=== PATIENT | male | born 1950 | race Caucasian/White ===

== ENCOUNTER 2018-01-04 23:33 | Emergency (ER) | payer MEDICARE, SELFPAY ==
[2018-01-04 23:34] VITALS: BP 171/139; PULSE 86; RESP 18; TEMP 37.2; O2SAT 93; BMI 26.0
--- NOTE | 2018-01-04 23:44 | RAD_ITS ---
STUDY: X-RAY - ACUTE ABDOMINAL SERIES REASON FOR EXAM: Male, 67 years old. GI BLEEDING TECHNIQUE: Single view of the chest. Supine, view(s) of the abdomen were obtained. COMPARISON: None. FINDINGS: The lungs are clear and expanded. Normal size heart. Normal mediastinum and supa. Normal visualized pulmonary arteries. Normal visualized aortic arch and descending thoracic aorta. There is a non-specific bowel gas pattern. The soft tissue structures of the abdomen and pelvis are unremarkable. Normal visualized osseous structures. Barium residue is seen in the sigmoid colon. RAD/Acute Abdomen Inc Chest IMPRESSION: No acute abnormality of the chest, abdomen, and pelvis. Electronically Signed: Dominga Rodriguez MD at 1:07 EDT Tel , Service support ,
[2018-01-05 00:14] LABS: Absolute Lymphocyte Count 1.21 X10^3/ul (0.83-4.51); Absolute Neutrophil Count 5.2 X10^3/uL (2.0-7.7); Basophil# 0.05 X10^3/uL; Basophil% 0.6 % (0-1); Eosinophil# 1.07 X10^3/uL; Eosinophils% 12.5 % (0-5); Hematocrit 37.9 % (40-54); Hemoglobin 12.1 g/dl (13.0-16.5); Lymphocyte # 1.21 X10^3/ul (4.0); Lymphocyte % 14.1 % (19-41); Mean Corp Hgb Conc 31.9 g/gl (32-36); Mean Corpuscular Hgb 28.3 pg (27.0-32.0); Mean Corpuscular Volume 88.6 fL (80-94); Mean Platelet Vol. 10.2 fl (6.2-12.0); Monocyte# 1.01 X10^3/uL; Monocyte% 11.8 % (0-10); Neutrophil # 5.22 X10^3/uL (2.7-7.7); Neutrophil % 60.8 % (47-70); Platelet Count 278 K/mm3 (150-450); RBC Distribution Width CV 15.9 % (11.6-14.6); RBC Distribution Width SD 51.3 fl (35.1-43.9); Red Blood Count 4.28 M/mm3 (4.6-6.2); White Blood Count 8.6 K/mm3 (4.4-11.0)
[2018-01-05 00:17] LABS: POSITIVE COUNT NO; POSITIVE DIFFERENTIAL NO; POSITIVE MORPHOLOGY NO
[2018-01-05 00:19] LABS: Anion Gap 6 (5-15); BUN 34 mg/dL (7-18); BUN/Creat Ratio 21.7 RATIO (10-20); Calcium,Total 8.2 mg/dL (8.5-10.1); Chloride 108 mmol/L (98-107); Creatinine, Serum 1.57 mg/dL (0.70-1.30); EST Glomerular Filtration Rate 47 mL/min (>60); Est Glom Filt Rate - Afr Amer 57 mL/min (>60); Estimated Creatinine Clearance 43.27 ml/min; Glucose 168 mg/dL (74-106); Potassium 3.9 mmol/L (3.5-5.1); Sodium Level 141 mmol/L (136-145)
[2018-01-05 00:21] LABS: International Normalized Ratio 1.1; Prothrombin Time (Protime)PT. 13.7 SECONDS (11.7-14.9)
[2018-01-05 00:22] LABS: Partial Thromboplast Time 28.4 Seconds (24.1-36.2)
[2018-01-05 01:45] VITALS: BP 170/103; O2SAT 94
--- NOTE | 2018-01-05 01:54 | EKG12_ITS ---
Test Reason : GI BLEED/TRANSFER Blood Pressure : / mmHG Vent. Rate : 066 BPM Atrial Rate : 066 BPM P-R Int : 166 ms QRS Dur : 102 ms QT Int : 398 ms P-R-T Axes : 051 065 082 degrees QTc Int : 417 ms Normal sinus rhythm Normal ECG Confirmed by BRYON ZARATE ([id number]), associate entertainment editor DEREK TABOR ([id number]) on 01/09/2018 1:50:30 PM Referred By: PAUL Confirmed By:BRYON ZARATE
--- NOTE | 2018-01-05 01:57 | ED.DCSUM_ITS ---
- ER Visit Summary Date of Service: 01/05/18 Chief Complaint: GI bleed History of Present Illness: The patient is a 67 M presenting with blood in colostomy bag. Patient states he started having bright red blood in his colostomy bag this evening. He states he emptied an entire bag of blood with clots before arrival. He states this happened in the past, the last time this occurred was in April 2017. He was sent to [facility] at that time. He states all of his surgeries and GI care has been at [facility] and is requesting transfer. He has had nausea and vomiting but denies blood in his emesis. He denies any increased output from his colostomy. Physical Examination: Vitals are stable. Patient is afebrile. Alert no acute distress. HEENT exam is unremarkable. Neck is supple. Lungs are clear and equal bilaterally. Heart is regular rate and rhythm. Abdomen is soft mild tenderness around colostomy with blood in colostomy bag. No guarding or rebound Extremities are unremarkable. Skin is warm and dry. No focal neurologic deficit. Remainder of exam is unremarkable. Emergency Department Course and Treatment: CBC normal except hemoglobin 12.1. Chemistries show glucose 168, BUN 34, creatinine 1.57. INR is 1.1. Patient is given IV fluids, Zofran. Abdominal series shows no acute process. He remains hemodynamically stable in the ED. Discussed with [facility] transfer line and patient will be transferred to [facility]. Disposition: Transfer [facility] Impression: GI bleed This note was generated with textmetix dictation software. It may contain incorrect words, spelling, and punctuation that were not noted in review of the chart prior to signing ED Disposition - Plan for ED Patient: Chief Complaint: GI Bleed Referrals: Carlos Zurita Chi, MD [Primary Care Provider] -
[2018-01-05] MEDS: Ondansetron 4 MG/2 ML Vial IV (02:04)
[2018-01-05 03:00] VITALS: BP 164/90; PULSE 72; RESP 18
== END 2018-01-05 03:01 | disposition short-term general hospital (02) ==
PROVIDERS: Emergency Provider Emergency Medicine; Family Provider Family Medicine Geriatric Medicine; PCP Family Medicine Geriatric Medicine
DX: K92.2 Gastrointestinal hemorrhage, unspecified (principal); Z93.3 Colostomy status; I25.10 Atherosclerotic heart disease of native coronary artery without angina pectoris; I13.0 Hypertensive heart and chronic kidney disease with heart failure and stage 1 through stage 4 chronic kidney disease, or unspecified chronic kidney disease; N18.9 Chronic kidney disease, unspecified; E78.00 Pure hypercholesterolemia, unspecified; J44.9 Chronic obstructive pulmonary disease, unspecified; D64.9 Anemia, unspecified; Z79.82 Long term (current) use of aspirin; Z79.899 Other long term (current) drug therapy
CPT/HCPCS: 74022; 80048; 85025; 85610; 85730; 93005; 96374; 99285; J7030; J7040; A4216; J2405

== ENCOUNTER 2018-01-25 06:58 | Emergency (ER) | payer MEDICARE, SELFPAY ==
[2018-01-25 06:59] VITALS: BP 190/103; PULSE 71; RESP 24; TEMP 36.7; O2SAT 95; BMI 25.0
[2018-01-25 07:32] VITALS: BP 172/103; PULSE 73; RESP 14; O2SAT 96
[2018-01-25 07:54] LABS: Absolute Lymphocyte Count 1.31 X10^3/ul (0.83-4.51); Absolute Neutrophil Count 5.8 X10^3/uL (2.0-7.7); Basophil# 0.04 X10^3/uL; Basophil% 0.4 % (0-1); Eosinophil# 1.32 X10^3/uL; Eosinophils% 13.7 % (0-5); Hematocrit 39.4 % (40-54); Hemoglobin 12.2 g/dl (13.0-16.5); Lymphocyte # 1.31 X10^3/ul (4.0); Lymphocyte % 13.6 % (19-41); Mean Corpuscular Hgb 27.2 pg (27.0-32.0); Mean Corpuscular Volume 87.8 fL (80-94); Mean Platelet Vol. 9.3 fl (6.2-12.0); Monocyte% 11.4 % (0-10); Neutrophil # 5.83 X10^3/uL (2.7-7.7); Neutrophil % 60.7 % (47-70); POSITIVE COUNT NO; POSITIVE DIFFERENTIAL NO; POSITIVE MORPHOLOGY NO; Platelet Count 294 K/mm3 (150-450); RBC Distribution Width CV 15.2 % (11.6-14.6); RBC Distribution Width SD 48.7 fl (35.1-43.9); Red Blood Count 4.49 M/mm3 (4.6-6.2); White Blood Count 9.6 K/mm3 (4.4-11.0)
[2018-01-25 07:56] LABS: Anion Gap 7 (5-15); BUN 33 mg/dL (7-18); BUN/Creat Ratio 20.4 RATIO (10-20); Calcium,Total 8.6 mg/dL (8.5-10.1); Chloride 107 mmol/L (98-107); Creatinine, Serum 1.62 mg/dL (0.70-1.30); EST Glomerular Filtration Rate 46 mL/min (>60); Est Glom Filt Rate - Afr Amer 55 mL/min (>60); Estimated Creatinine Clearance 41.94 ml/min; Glucose 97 mg/dL (74-106); Potassium 4.3 mmol/L (3.5-5.1); Sodium Level 139 mmol/L (136-145)
[2018-01-25] MEDS: HYDROcodone Bitartrate/Apap 5/325 Tablet PO (08:34)
--- NOTE | 2018-01-25 08:38 | CT_ITS ---
STUDY: CT ABDOMEN AND PELVIS WITHOUT CONTRAST REASON FOR EXAM: Male, 67 years old. History of ulcerative colitis and colostomy. Blood in colostomy. RADIATION DOSAGE (If Supplied By Facility): CTDIvol = ( 6.56 ) mGy, DLP = ( 313.22 ) mGycm TECHNIQUE: Transaxial images were obtained from the dome of the diaphragm to the symphysis pubis without oral contrast, and without intravenous contrast. Sagittal and coronal images were reconstructed. Individualized dose optimization techniques were used for this CT. COMPARISON: Comparison is made with prior study dated May 24, 2017. FINDINGS: Stable mild degree of increased linear markings at the lung bases suggestive of scarring. The visualized portions of the heart are within normal limits. Normal liver. Normal gallbladder and extrahepatic biliary system. Normal spleen. Normal pancreas. There is a small, circumscribed, smooth, low attenuation left adrenal mass, consistent with an adrenal adenoma. This measures 1.8 cm. This is unchanged. Normal right adrenal gland. Normal right kidney. Normal left kidney. Normal visualized stomach. Normal small intestine. There are multiple colonic diverticula consistent with diverticulosis. The patient is status post appendectomy. Once again, dense contrast is seen in the distal colon from prior barium study and residual within the rectosigmoid pouch. Moderate amount of fecal material is seen in the colon. There is diffuse atherosclerotic calcification of the abdominal aorta and its major visceral branches. Once again, there is evidence of an infrarenal fusiform abdominal aortic aneurysm with a transverse dimension of 6.9 cm. Normal inferior vena cava. Normal retroperitoneum. Normal urinary bladder. Thinning of the anterior abdominal wall at the level of the umbilicus. A colostomy is seen in the left lower quadrant. There are diffuse degenerative changes of the visualized lumbar spine. CT/Abdomen/Pelvis without Cont IMPRESSION: Stable examination. Fusiform infrarenal abdominal aortic aneurysm with a transverse dimension of 6.9 cm. Electronically Signed: Bashir Loza MD at 9:12 EDT Tel [phone], Service support ,
--- NOTE | 2018-01-25 08:43 | ED.VISSUMM ---
- ER Visit Summary Date of Service: 01/25/18 Chief Complaint: GI bleed History of Present Illness: The patient is a 67 M presenting for evaluation secondary to a GI bleed. Patient had a similar presentation about 2 weeks ago and was required transfer to [facility] because that is where all of his prior treatment had been. Patient had a history of a severe GI bleed with a colectomy in the past. 2 weeks ago the patient had a similar presentation, had a stay in the ICU, and was discharged. Patient states that today he woke up and noted blood in his ostomy bag again. He does endorse that he has a mild amount of abdominal pain. Denies any chest pain shortness of breath or syncope. Patient does also have a history of a 6 cm abdominal aortic aneurysm. He is not on any sort of anticoagulants. Review of systems otherwise negative. Physical Examination: Vital signs notable for elevated blood pressure 190/103. Well-nourished male no acute distress no conjunctival pallor. Moist mucous membranes. Neck supple. Heart was regular rate and rhythm. Lungs sounds clear. Abdomen was soft and nontender my exam, normal bowel sounds. There is a large midline abdominal surgical scar, and the patient does have blood in his oxygen being bagged. Extremities are nontender nonedematous normal pulses remained physical otherwise unremarkable. Test Results: CBC demonstrates hemoglobin of 12.2 which is on par with patient's last hemoglobin of 12.1. Chemistry shows creatinine 1.6 which is normal for the patient, coagulation studies within normal limits. CT abdomen and pelvis shows a stable 6.9 cm infrarenal abdominal aortic aneurysm without evidence of aortoenteric fistula Emergency Department Course and Treatment: Patient presented secondary to GI bleed. Patient's workup is noted as above, he is hemodynamically stable but is continuing to have annika blood in his ostomy bag. CT was performed to check for possible aortoenteric fistula and was found to be negative. Patient has received all of his care at [facility] for this, so there transfer line was contacted. Ultimately they did accept the patient. Patient will be transferred for continued care and monitoring. Disposition: Transfer Impression: 1. Lower GI bleed 2. 6.9 cm abdominal aortic aneurysm, stable This note was generated with [employer] dictation software. It may contain incorrect words, spelling, and punctuation that were not noted in review of the chart prior to signing ED Disposition - Plan for ED Patient: Chief Complaint: GI Bleed Referrals: Carlos Zurita Chi, MD [Primary Care Provider] -
[2018-01-25 08:48] LABS: Partial Thromboplast Time 29.5 Seconds (24.1-36.2)
[2018-01-25 09:00] LABS: International Normalized Ratio 0.9; Prothrombin Time (Protime)PT. 12.6 SECONDS (11.7-14.9)
--- NOTE | 2018-01-25 09:30 | NURSING ---
CALLED [facility] FOR TRANSFER
[2018-01-25 10:09] VITALS: BP 154/92; PULSE 62; RESP 15; O2SAT 92
[2018-01-25 11:29] LABS: Lactic Acid 1.1 mmol/L (0.4-2.0)
[2018-01-25 11:34] VITALS: BP 170/95; PULSE 74; RESP 18; O2SAT 97
--- NOTE | 2018-01-25 12:53 | NURSING ---
akrosie gen [id number] report [phone]
[2018-01-25 13:00] VITALS: BP 162/92; PULSE 63; RESP 18; O2SAT 95
[2018-01-25 13:23] LABS: Hemoglobin 12.6 g/dl (13.0-16.5)
--- NOTE | 2018-01-25 13:26 | NURSING ---
CALLED [facility] FOR TRANSPORT. IN [place]
[2018-01-25 13:49] VITALS: BP 162/92; PULSE 63; RESP 18; TEMP 36.6; O2SAT 98
--- NOTE | 2018-01-25 13:53 | ED.RN ---
REPORT TO NIR DE LA TORRE AT [id number]
== END 2018-01-25 13:52 | disposition short-term general hospital (02) ==
PROVIDERS: Emergency Provider Emergency Medicine; Family Provider Family Medicine Geriatric Medicine; PCP Family Medicine Geriatric Medicine
DX: K92.1 Melena (principal); I71.4 Abdominal aortic aneurysm, without rupture; Z93.3 Colostomy status
CPT/HCPCS: 74176; 80048; 83605; 85014; 85018; 85025; 85610; 85730; 86850; 86900; 99285; A4216

== ENCOUNTER 2018-02-15 00:04 | Inpatient (IN) | payer MEDICARE, SELFPAY ==
[2018-02-15] VITALS (23 sets, daily range): BP systolic 133–204; BP diastolic 59–110; PULSE 64–76; RESP 12–18; TEMP 36.6–36.9; O2SAT 92–97; BMI 25.6; BMI 24.7; BMI 24.8
--- NOTE | 2018-02-15 00:24 | CT_ITS ---
STUDY: CT ABDOMEN AND PELVIS WITHOUT CONTRAST REASON FOR EXAM: Male, 67 years old. Abdominal pain today with vomiting. Patient has blood in the colostomy. RADIATION DOSAGE (If Supplied By Facility): CTDIvol = ( 7.55 ) mGy, DLP = ( 381.10 ) mGycm TECHNIQUE: Transaxial images were obtained from the dome of the diaphragm to the symphysis pubis without oral contrast, and without intravenous contrast. Sagittal and coronal images were reconstructed. Individualized dose optimization techniques were used for this CT. COMPARISON: CT abdomen and pelvis dated January 25, 2018 and July 26, 2016. FINDINGS: There is a well-circumscribed lucency within the posterior segment of the right lower lobe that may represent a bleb. This is larger than it was on the CT dated August 05, 2016 and unchanged since the most recent CT. The visualized portions of the heart are within normal limits. There appear to be capsular calcifications of the liver most noticeable posteriorly and medially. This is unchanged since the previous study. There is small focus of abnormally decreased attenuation in the right lobe of liver measuring up to 10 mm in size. This appears to be solid. There are no dilated intrahepatic biliary ducts. The gallbladder is distended. There is heterogeneous attenuation of the gallbladder suggesting possible cholelithiasis. Normal spleen. Normal pancreas. There is symmetric enlargement of the adrenal glands suggesting adrenal hyperplasia. Normal right kidney. There appears to be a exophytic cystic lesion arising from lower pole left kidney measuring 1.5 cm in greatest dimension. This has attenuation of approximately 15.5 Hounsfield units. Normal visualized stomach. There is no evidence for dilated bowel, ascites or pneumoperitoneum. Small bowel has a grossly normal unenhanced appearance. There is a colostomy exiting the left lower quadrant abdominal wall. There are multiple colonic diverticula. Stool is visible throughout the colon. The appendix is visualized and appears normal. There is a large fusiform abdominal aortic aneurysm measuring 7.7 cm in greatest transverse dimension. This is similar to the previous CT. Normal inferior vena cava. Normal retroperitoneum. Normal urinary bladder. Normal visualized prostate gland. There is some beam hardening and streak artifact secondary to inspissated barium within the rectum. There is mild diastases recti within the abdominal wall. There are diffuse degenerative changes of the visualized lumbar spine. The bones appear osteopenic. CT/Abdomen/Pelvis without Cont IMPRESSION: 1. Large fusiform abdominal aortic aneurysm similar to previous study. Greatest transverse dimension is 7.7 cm. 2. Colonic diverticulosis. 3. Diverting left lower quadrant colostomy. 4. Left-sided renal cysts. 5. Nonspecific lesion within liver. Electronically Signed: Lisa Pope MD at 1:50 EDT , Service support ,
--- NOTE | 2018-02-15 00:24 | EKG12_ITS ---
Test Reason : Blood Pressure : / mmHG Vent. Rate : 066 BPM Atrial Rate : 066 BPM P-R Int : 212 ms QRS Dur : 102 ms QT Int : 392 ms P-R-T Axes : 064 056 075 degrees QTc Int : 410 ms Sinus rhythm with 1st degree A-V block Otherwise normal ECG Confirmed by CLAUDIA VELASCO, ELIEZER ([id number]), newspaper managing editor DEREK TABOR ([id number]) on 02/17/2018 12:53:03 PM Referred By: IRINEO Confirmed By:ELIEZER TAYLOR MD
[2018-02-15] MEDS: Morphine 4 MG/ML Syringe IV (00:37)
[2018-02-15] MEDS: proMETHazine 25 MG/ML Syringe 12.5 MG IV (00:37)
[2018-02-15] MEDS: Ondansetron 4 MG/2 ML Vial IV (00:37)
[2018-02-15 00:51] LABS: Absolute Lymphocyte Count 1.23 X10^3/ul (0.83-4.51); Absolute Neutrophil Count 6.3 X10^3/uL (2.0-7.7); Basophil# 0.07 X10^3/uL; Basophil% 0.7 % (0-1); Eosinophil# 1.53 X10^3/uL; Eosinophils% 14.9 % (0-5); Hematocrit 36.9 % (40-54); Hemoglobin 11.5 g/dl (13.0-16.5); Lymphocyte # 1.23 X10^3/ul (4.0); Mean Corp Hgb Conc 31.2 g/gl (32-36); Mean Corpuscular Hgb 27.4 pg (27.0-32.0); Mean Corpuscular Volume 87.9 fL (80-94); Mean Platelet Vol. 9.5 fl (6.2-12.0); Monocyte# 1.06 X10^3/uL; Monocyte% 10.3 % (0-10); Neutrophil # 6.34 X10^3/uL (2.7-7.7); Neutrophil % 61.9 % (47-70); Platelet Count 318 K/mm3 (150-450); RBC Distribution Width CV 14.6 % (11.6-14.6); RBC Distribution Width SD 46.5 fl (35.1-43.9); White Blood Count 10.3 K/mm3 (4.4-11.0)
[2018-02-15 00:53] LABS: International Normalized Ratio 1.1; POSITIVE COUNT NO; POSITIVE DIFFERENTIAL NO; POSITIVE MORPHOLOGY NO; Prothrombin Time (Protime)PT. 13.7 SECONDS (11.7-14.9)
[2018-02-15 01:11] LABS: ALB/GLOB Ratio 0.9 RATIO (0.9-2.4); AST(SGOT) 8 U/L (15-37); Alanine Aminotransfer ALT/SGPT 18 U/L (16-61); Albumin, Serum 2.5 g/dL (3.2-5.0); Alkaline Phosphatase 116 U/L (45-117); Anion Gap 5 (5-15); BUN 26 mg/dL (7-18); BUN/Creat Ratio 21.7 RATIO (10-20); Calcium,Total 6.5 mg/dL (8.5-10.1); Chloride 117 mmol/L (98-107); EST Glomerular Filtration Rate 64 mL/min (>60); Est Glom Filt Rate - Afr Amer 78 mL/min (>60); Estimated Creatinine Clearance 56.61 ml/min; Globulin 2.7 g/dL (2.2-4.2); Glucose 86 mg/dL (74-106); Potassium 3.2 mmol/L (3.5-5.1); Protein, Total 5.2 g/dL (6.4-8.2); Sodium Level 147 mmol/L (136-145)
[2018-02-15 01:11] LABS: Lactic Acid 0.7 mmol/L (0.4-2.0)
--- NOTE | 2018-02-15 02:16 | ED.VISSUMM ---
- ER Visit Summary Date of Service: 02/15/18 Chief Complaint: GI bleed History of Present Illness: The patient is a 67 M who presents with a GI bleed. He has a history of GI bleeds on multiple prior occasions. He has had a colectomy and has a colostomy. About 1 hour ago he began to have grossly bloody output from his colostomy. He reports nausea with 3-4 episodes of dry heaving and diffuse aching abdominal pain. He has had multiple prior similar presentations. He was recently admitted earlier this month at [facility]. He was also admitted shortly before that for GI bleed. He states on both occasions they just monitored him and he did not require transfusion and did not have any procedures like endoscopy. Physical Examination: Hypertensive vitals otherwise unremarkable Moist mucous membranes Heart regular rate and rhythm Lungs are clear Resting comfortably in no distress Abdomen is soft laparotomy incision noted colostomy noted with grossly bloody output he has some mild diffuse tenderness but no guarding or rebound Test Results: EKG shows sinus rhythm with first-degree AV block at a rate of 66. Laboratory studies notable for hemoglobin 11.5. Calcium is 6.5. INR normal at 1.1. Lactic acid normal. CT of the abdomen and pelvis was obtained which shows a large fusiform abdominal aortic aneurysm which is similar to prior studies. Colostomy noted. Diverticulosis noted. Emergency Department Course and Treatment: Patient was treated with IV fluids. He was given morphine and Phenergan for pain. [facility] currently has no beds available which is where his stitcher operator is. I did speak to Dr. Jordan, our stitcher operator rn clinical documentation here. He will see the patient in consultation and patient was admitted under the hospitalist service. His calcium was also replaced IV. Treatment Plan: [] Disposition: Admit Impression: GI bleed Hypocalcemia This note was generated with [employer] dictation software. It may contain incorrect words, spelling, and punctuation that were not noted in review of the chart prior to signing ED Disposition - Plan for ED Patient: Chief Complaint: GI Bleed Referrals: Vamsi Bah MD [Primary Care Provider] -
--- NOTE | 2018-02-15 02:37 | ED.DCSUM_ITS ---
- ER Visit Summary Date of Service: 02/15/18 Chief Complaint: GI bleed History of Present Illness: The patient is a 67 M who presents with a GI bleed. He has a history of GI bleeds on multiple prior occasions. He has had a colectomy and has a colostomy. About 1 hour ago he began to have grossly bloody output from his colostomy. He reports nausea with 3-4 episodes of dry heaving and diffuse aching abdominal pain. He has had multiple prior similar presentations. He was recently admitted earlier this month at [facility]. He was also admitted shortly before that for GI bleed. He states on both occasions they just monitored him and he did not require transfusion and did not have any procedures like endoscopy. Physical Examination: Hypertensive vitals otherwise unremarkable Moist mucous membranes Heart regular rate and rhythm Lungs are clear Resting comfortably in no distress Abdomen is soft laparotomy incision noted colostomy noted with grossly bloody output he has some mild diffuse tenderness but no guarding or rebound Test Results: EKG shows sinus rhythm with first-degree AV block at a rate of 66. Laboratory studies notable for hemoglobin 11.5. Calcium is 6.5. INR normal at 1.1. Lactic acid normal. CT of the abdomen and pelvis was obtained which shows a large fusiform abdominal aortic aneurysm which is similar to prior studies. Colostomy noted. Diverticulosis noted. Emergency Department Course and Treatment: Patient was treated with IV fluids. He was given morphine and Phenergan for pain. [facility] currently has no beds available which is where his supervisor painting shipyard is. I did speak to Dr. Jordan, our supervisor painting shipyard aluminum fabrication supervisor here. He will see the patient in consultation and patient was admitted under the hospitalist service. His calcium was also replaced IV. Treatment Plan: [] Disposition: Admit Impression: GI bleed Hypocalcemia This note was generated with [employer] dictation software. It may contain incorrect words, spelling, and punctuation that were not noted in review of the chart prior to signing ED Disposition - Plan for ED Patient: Chief Complaint: GI Bleed Referrals: Vamsi Bah MD [Primary Care Provider] -
--- NOTE | 2018-02-15 03:07 | HP.PCM_ITS ---
Problem List (1) Lower GI bleed Status: Acute (2) History of colostomy Status: Chronic Comment: History of obstructed inguinal hernia status post colostomy in January 2017 (3) Colon polyp Status: Chronic (4) Acute cystitis Status: Resolved (5) AAA (abdominal aortic aneurysm) Status: Chronic Qualifiers: Comment: 6.2 cm (6) Anemia Status: Chronic (7) Atherosclerotic peripheral vascular disease Status: Chronic (8) BPH (benign prostatic hyperplasia) Status: Chronic (9) CAD (coronary artery disease) Status: Chronic Comment: left main RCA LAD referred for CABG (10) CKD (chronic kidney disease) stage 3, GFR 30-59 ml/min Status: Chronic (11) COPD (chronic obstructive pulmonary disease) Status: Chronic Comment: mild (12) Chronic back pain Status: Chronic (13) Congestive heart failure Status: Chronic (14) Hyperlipidemia Status: Chronic (15) Hypertension Status: Chronic (16) Tenuous home situation Status: Chronic History of Present Illness Date of Admission: 02/15/18 Chief Complaint: Lower GI bleed since last night The patient is a 67 year old M with history of recurrent ER visit and transferred to [facility] in December and January 2018 (where he was discharged after conservative management but no scope) came to ER from [facility] after he found red blood found in the colostomy bag since last night. Patient had colostomy done in January 2017 after surgery for obstructed inguinal hernia in [facility]. After that he had serious lower GI bleed from polyp near colostomy in April 2017 for which she required about 12 units of PRBC as per the patient. He had EGD done last year but is not sure about the findings. He also complained of bilateral lower quadrants abdominal pain since yesterday night. He had 2-3 times vomiting, gastric incontinent but denies hematemesis. In [place] he had CT abdomen done which shows large fusiform AAA, 7.7 cm but is stable as compared to previous CT abdomen with colonic diverticulosis. Initial blood work shows hemoglobin 11.5, hematocrit 36.9, platelet count 318, K3.2, chloride 117 corrected calcium 7.7 with albumin 2.5. Past Medical History Past Medical History (Chronic Problems): Chronic Problems History of colostomy (Chronic) History of obstructed inguinal hernia status post colostomy in January 2017 Colon polyp (Chronic) Chronic back pain (Chronic) AAA (abdominal aortic aneurysm) (Chronic) 6.2 cm Hypertension (Chronic) COPD (chronic obstructive pulmonary disease) (Chronic) mild CAD (coronary artery disease) (Chronic) left main RCA LAD referred for CABG CKD (chronic kidney disease) stage 3, GFR 30-59 ml/min (Chronic) BPH (benign prostatic hyperplasia) (Chronic) Tenuous home situation (Chronic) Atherosclerotic peripheral vascular disease (Chronic) Anemia (Chronic) Hyperlipidemia (Chronic) Congestive heart failure (Chronic) Allergies ciprofloxacin [From Cipro] Allergy (Verified 01/04/18 23:40) Unknown Penicillins [PCN] Allergy (Verified 01/04/18 23:40) Unknown Iodinated Contrast- Oral and IV Dye [CT] Adverse Reaction (Verified 01/25/18 07: 32) Rash Home Medications: Ambulatory Orders Medication Instructions Recorded Atorvastatin Calcium [Lipitor] 80 mg PO DAILY 01/05/18 Hydrocodone Bitart/Apap 5-325 1 tablet PO Q4H PRN PRN 01/05/18 [[place] 5MG-325MG] Isosorbide Mononitrate [Isosorbide 30 mg PO DAILY 01/05/18 Mononitrate ER] Pantoprazole Sodium 40 mg PO DAILY 01/05/18 Tamsulosin HCl [Flomax] 0.8 mg PO QHS 01/05/18 Amlodipine Besylate [Norvasc] 2.5 mg PO QHS 01/25/18 Carvedilol [Coreg (Beta Chase)] 25 mg PO BID 01/25/18 Dicyclomine HCl [Bentyl] 10 mg PO BREAKFAST 01/25/18 Dicyclomine HCl [Bentyl] 10 mg PO QHS 01/25/18 Surgical History: appendectomy, colectomy - Sigmoid hemicolectomy with colostomy., coronary bypass surgery Psychiatric History: No pertinent psych hx Smoking Status: Former smoker - *Family History Maternal History Items: No pertinent history Paternal History Items: No pertinent history Review of Systems Constitutional: Reports: Malaise, Weakness, Weight Change, Fatigue. Denies: Fever HEENT: Denies: Head Aches, Sinus Congestion, Sinus Drainage Cardiovascular: Denies: Chest Pain, Palpitations Respiratory: Denies: Cough, Shortness of breath at rest, Sputum production Gastrointestinal: Reports: Abdominal Pain, Hematochezia, Nausea, Vomiting Genitourinary: Denies: Dysuria Musculoskeletal: Denies: Joint Pain, Joint Tenderness Skin: Denies: Rash, Wounds Neurological: Denies: Numbness, Tingling, Focal weakness Psychiatric: Denies: Anxiety, Depression, Homicidal Ideations, Suicidal Ideations Hematologic/ Lymphatic: Denies: Easy Bruising, Easy Bleeding VTE Information - Inpt Only VTE Present on Admission: No VTE Mechan Device Prophylaxis: SCD's Reason prophylaxis not ordered:: Medical Contraindication - Active GI bleed Patient Problems: Active and Suspected Problems Lower GI bleed (Acute) - Physical Exam General: Alert, Oriented x3, Cooperative HEENT: Atraumatic, PERRLA, EOMI, Normocephalic Neck: Supple, No JVD, Negative Carotid Bruits Lungs: Clear to auscultation, Normal air movement Cardiovascular: Regular rate, Regular Rhythm, Normal S1, Normal S2, No murmurs Abdomen: Bowel Sounds Present, Soft, Hypoactive Bowel Sounds, Tender - Diffuse tenderness present, predominantly in left lower quadrant Extremities: No edema, Capillary Refill Less than 3 Seconds Skin: No rashes, No breakdown Musculoskeletal: No Tenderness to Palpation of Joints or Extremities, Muscle Wasting Neurological: Cranial nerves II-XII grossly intact Psych/Mental Status: Normal Affect, Appropriate Vital Signs Temp Pulse Resp BP Pulse Ox 98.3 F 69 12 188/110 H 95 02/15/18 00:05 02/15/18 02:39 02/15/18 02:39 02/15/18 02:39 02/15/18 02:39 Assessment/Plan Active and Suspected Problems Lower GI bleed (Acute) The patient is a 67 year old M with history of recurrent ER visit and transferred to [facility] in December and January 2018 (where he was discharged after conservative management but no scope) came to ER from [facility] after he found red blood found in the colostomy bag since last night. Patient had colostomy done in January 2017 after surgery for obstructed inguinal hernia in [facility]. After that he had serious lower GI bleed from polyp near colostomy in April 2017 for which she required about 12 units of PRBC as per the patient. He had EGD done last year but is not sure about the findings. He also complained of bilateral lower quadrants abdominal pain since yesterday night. He had 2-3 times vomiting, gastric incontinent but denies hematemesis. In [place] he had CT abdomen done which shows large fusiform AAA, 7.7 cm but is stable as compared to previous CT abdomen with colonic diverticulosis. Initial blood work shows hemoglobin 11.5, hematocrit 36.9, platelet count 318, K3.2, chloride 117 corrected calcium 7.7 with albumin 2.5. 1. Acute on recurrent GI bleed most probably lower GI bleed; most probably ischemic, less likely inflammatory colitis: The patient is being admitted in PCU. IV fluid normal saline 1 L bolus and then 150 mL/h, to be titrated as per intake and output. Strict NAHUN's. IV PPI although seems to lower GI bleed. ER physician discussed with Dr. Byers and he agreed to see the patient. H&H monitoring every 6 hourly. Group and crossmatch and transfuse if hemoglobin less than 8 g percent. 2. Abdominal pain, exact etiology unclear but possible inflammatory/ischemic colitis: pain control. Monitor. 3. Electrolyte abnormality, hypokalemia, hyperchloremia and hypocalcemia probably from GI bleed: Monitor and replace accordingly. 1 g IV calcium gluconate ordered. Follow-up BMP in morning. 4. Mild acute anemia most probably from GI blood loss: Baseline hemoglobin is about 12 g percent on January 25, 2018. Currently 11.5 g percent. Iron studies. Multiple comorbidities including hypertension, COPD, coronary artery disease, CKD stage III, BPH, large AAA, stable in size: He had cardiac cath in December 2014 which showed evidence of coronary disease in proximal LAD, RCA and left main. Patient was advised to follow-up with Dr. Cervantes for referral for CABG because inpatient transfer was deferred as it was not urgent and deferred because of his renal status as per D/C summary in 11/2014. home medication reconciliation done. Guarded prognosis Laboratory Results 02/15/18 00:25: WBC 10.3, RBC 4.20 L, Hgb 11.5 L, Hct 36.9 L, MCV 87.9, MCH 27.4 , MCHC 31.2 L, RDW 14.6, RDW Differential 46.5 H, Plt Count 318, MPV 9.5, Immature Gran % (Auto) 0.200, Neut % (Auto) 61.9, Lymph % (Auto) 12.0 L, [place] % (Auto) 10.3 H, Eos % (Auto) 14.9 H, Baso % (Auto) 0.7, Absolute Neuts (auto) 6.3 , Absolute Lymphs (auto) 1.23, Total Counted Not Reportable 02/15/18 00:25: Sodium 147 H, Potassium 3.2 L, Chloride 117 H, Carbon Dioxide 25.0, Anion Gap 5, BUN 26 H, Creatinine 1.20, Estim Creat Clear Calc 56.61, Est GFR (MDRD) Af Amer 78, Est GFR (MDRD) Non-Af 64, BUN/Creatinine Ratio 21.7 H, Glucose 86, Calcium 6.5 L*, Total Bilirubin 0.20, AST 8 L, ALT 18, Alkaline Phosphatase 116, Total Protein 5.2 L, Albumin 2.5 L, Globulin 2.7, Albumin/ Globulin Ratio 0.9 02/15/18 00:25: PT 13.7, INR 1.1 02/15/18 00:25: Blood Type O POSITIVE, Antibody Screen NEGATIVE 02/15/18 00:40: Lactic Acid 0.7 Clinical Impression(s) from Imaging Studies Abdomen/Pelvis CT 02/15/18 00:24 IMPRESSION: 1. Large fusiform abdominal aortic aneurysm similar to previous study. Greatest transverse dimension is 7.7 cm. 2. Colonic diverticulosis. 3. Diverting left lower quadrant colostomy. 4. Left-sided renal cysts. 5. Nonspecific lesion within liver. This note was generated with [employer] dictation software. Every effort was made to ensure accuracy, however computerized commercial account manager mistakes may persist. Code Visit Inpatient E&M: 89652 Init Hosp L3
[2018-02-15] MEDS: 0.9% Normal Saline 1,000 ML 999 ML IV ×2 (03:10→03:59)
--- NOTE | 2018-02-15 03:30 | EKG12_ITS ---
Test Reason : AM EKG Blood Pressure : / mmHG Vent. Rate : 067 BPM Atrial Rate : 067 BPM P-R Int : 224 ms QRS Dur : 094 ms QT Int : 392 ms P-R-T Axes : 068 064 079 degrees QTc Int : 414 ms Sinus rhythm with 1st degree A-V block Otherwise normal ECG When compared with ECG of 05-JAN-2018 02:05, TX interval has increased Confirmed by CLAUDIA VELASCO, ELIEZER ([id number]), story editor DEREK TABOR ([id number]) on 02/17/2018 1:26:32 PM Referred By: MELA Confirmed By:ELIEZER TAYLOR MD
[2018-02-15] MEDS: Potassium Chloride 40 MEQ in 0.9% Normal Saline 1,000 ML 150 MEQ IV (04:01)
[2018-02-15] MEDS: Morphine 2 MG/ML Syringe IM ×4 (04:04→22:05)
[2018-02-15] MEDS: Carvedilol 25 MG Tablet PO ×3 (04:04→22:04)
[2018-02-15 04:10] LABS: Magnesium 1.6 mg/dL (1.6-2.6)
[2018-02-15 05:02] LABS: Bacteria 0 SEEN /hpf (None Seen); Mucous, Urine 0 SEEN /hpf (<or=2+); Red Blood Cells-Urine 0 SEEN /hpf (0-5); Squamous Epithelial Cells - UA 0 SEEN /hpf (0-5); White Blood Cells 0 SEEN /hpf (0-5)
[2018-02-15 05:09] LABS: Color, Urine Yellow (Yellow); Glucose, Dipstick Normal (Normal); Ketone-Dipstick Negative (Negative); Leukocyte Esterase-Dipstick Negative /ul (Negative); Nitrite-Dipstick Negative (Negative); Occult Blood-Urine Negative /ul (Negative); Protein-Dipstick Negative (Negative); Urine Bilirubin Dipstick Negative (Negative); Urine Clarity Clear (Clear); Urine Urobilinogen Normal (Normal)
[2018-02-15 06:17] LABS: Hemoglobin 10.9 g/dl (13.0-16.5); Mean Corp Hgb Conc 31.1 g/gl (32-36); Mean Corpuscular Hgb 27.1 pg (27.0-32.0); Mean Corpuscular Volume 87.1 fL (80-94); Mean Platelet Vol. 9.3 fl (6.2-12.0); Platelet Count 271 K/mm3 (150-450); RBC Distribution Width CV 14.7 % (11.6-14.6); RBC Distribution Width SD 46.9 fl (35.1-43.9); Red Blood Count 4.02 M/mm3 (4.6-6.2); White Blood Count 8.7 K/mm3 (4.4-11.0)
[2018-02-15 06:21] LABS: Scan Indicated on CBC? Y/N NO
[2018-02-15 06:23] LABS: Anion Gap 7 (5-15); BUN 25 mg/dL (7-18); BUN/Creat Ratio 18.1 RATIO (10-20); Calcium,Total 7.7 mg/dL (8.5-10.1); Chloride 114 mmol/L (98-107); Creatinine, Serum 1.38 mg/dL (0.70-1.30); EST Glomerular Filtration Rate 55 mL/min (>60); Est Glom Filt Rate - Afr Amer 66 mL/min (>60); Estimated Creatinine Clearance 49.23 ml/min; Glucose 85 mg/dL (74-106); Potassium 5.1 mmol/L (3.5-5.1); Sodium Level 145 mmol/L (136-145)
--- NOTE | 2018-02-15 06:33 | NURSING ---
DR PEREZ NOTIFIED THAT PT REQUESTED DR CHANCE. CONSULTED CANCELLED
[2018-02-15] MEDS: 0.9% NaCl Peripheral Flush Adult/Peds IV ×3 (09:00→16:37)
[2018-02-15 10:35] LABS: Hematocrit 35.1 % (40-54); Hemoglobin 10.9 g/dl (13.0-16.5)
--- NOTE | 2018-02-15 10:49 | CASEMGMT ---
Social Work SW met with pt in room and introduced self and role of SW. Pt states he has resided at [facility] for the past 6-8 months and he plans to return there upon d/c from the hospital. Pt confirmed that contact is Jasmyn Hawkins, his fideven's daughter. Pt states that he usually transports back to the facility using wheelchair van with no preference on company used. Phone call to Patsy at [facility] and she confirms that pt is currently a resident at [facility] and they are able to accept pt back when medically ready. SW will continue to follow for SNF placement. TANK Rowe
--- NOTE | 2018-02-15 11:12 | PN_ITS ---
<Satish Ham - Last Filed: 02/15/18 11:06> Patient Problems: Active and Suspected Problems Lower GI bleed (Acute) Subjective: Pt has had no further blood in his colostomy. He has diffuse lower abdominal pain. He has no dizziness or LH. He is not SOB. - Physical Exam General: Alert, Oriented x3, Cooperative HEENT: Atraumatic, PERRLA, EOMI, Normocephalic Neck: Supple, No JVD, Negative Carotid Bruits Lungs: Clear to auscultation, Normal air movement Cardiovascular: Regular rate, No murmurs Abdomen: Bowel Sounds Present, Tender, - - no blood in colostomy Extremities: No edema, Capillary Refill Less than 3 Seconds Skin: No rashes, No breakdown Musculoskeletal: No Tenderness to Palpation of Joints or Extremities Neurological: Cranial nerves II-XII grossly intact Psych/Mental Status: Normal Affect, Appropriate, Alert and oriented to time, place, person, mood and affect Vital Signs Temp Pulse Resp BP Pulse Ox 98.1 F 67 14 180/92 H 94 02/15/18 09:00 02/15/18 09:00 02/15/18 09:00 02/15/18 11:04 02/15/18 09:00 Oxygen Delivery Method Room Air Weight: 71.8 kg Body Mass Index (BMI) 24.7 Intake and Output for Last 24 Hours 02/13/18 02/14/18 02/15/18 23:59 23:59 23:59 Intake Total 2121 / 2121 Output Total 450 / 450 Balance 1671 / 1671 Laboratory Tests Past 24 Hrs 02/15/18 02/15/18 02/15/18 04:51 05:45 05:45 WBC 8.7 RBC 4.02 L Hgb 10.9 L Hct 35.0 L MCV 87.1 MCH 27.1 MCHC 31.1 L RDW 14.7 H RDW Differential 46.9 H Plt Count 271 MPV 9.3 Sodium 145 Potassium 5.1 Chloride 114 H Carbon Dioxide 24.0 Anion Gap 7 BUN 25 H Creatinine 1.38 H Estim Creat Clear Calc 49.23 Est GFR (MDRD) Af Amer 66 Est GFR (MDRD) Non-Af 55 L BUN/Creatinine Ratio 18.1 Glucose 85 Calcium 7.7 L Troponin I < 0.02 Urine Color Yellow Urine Clarity Clear Urine pH 7.0 Ur Specific [place] 1.010 Urine Protein Negative Urine Glucose (UA) Normal Urine Ketones Negative Urine Occult Blood Negative Urine Nitrite Negative Urine Bilirubin Negative Urine Urobilinogen Normal Ur Leukocyte Esterase Negative Urine RBC 0 SEEN Urine WBC 0 SEEN Ur Squamous Epith Cells 0 SEEN Urine Bacteria 0 SEEN Urine Mucus 0 SEEN 02/15/18 10:25 WBC RBC Hgb 10.9 L Hct 35.1 L MCV MCH MCHC RDW RDW Differential Plt Count MPV Sodium Potassium Chloride Carbon Dioxide Anion Gap BUN Creatinine Estim Creat Clear Calc Est GFR (MDRD) Af Amer Est GFR (MDRD) Non-Af BUN/Creatinine Ratio Glucose Calcium Troponin I Urine Color Urine Clarity Urine pH Ur Specific [place] Urine Protein Urine Glucose (UA) Urine Ketones Urine Occult Blood Urine Nitrite Urine Bilirubin Urine Urobilinogen Ur Leukocyte Esterase Urine RBC Urine WBC Ur Squamous Epith Cells Urine Bacteria Urine Mucus Medical Necessity - Tobacco Use Smoking Status: Former smoker Tobacco Use: Cigarettes Assessment/Plan Active and Suspected Problems Lower GI bleed (Acute) 1. Acute on chronic blood loss anemia 2/2 Acute lower GI bleed. Hgb stable. Surgery consulted. IV PPI. CT abd with prior large abdominal aortic aneurysm. Diverticulosis. LLQ colostomy. Left side renal cysts. Nonspecific lesions within liver. Hx bleeding polyps. 2. CKD III - stable 3. Hypokalemia/hypernatremia - resolved 4. Aortic aneurysm. 7.7cm. Stable. 5. HTN - poorly controlled. Added prn hydralazine. 6. CAD 7. COPD - stable 8. s/p colostomy for obstructed inguinal hernia. DVT ppx: SCDs DC planning: return to SNF. This patient was seen by Satish Ham PA-C under the supervision of Doctor Triplett. <oKrin Triplett - Last Filed: 02/15/18 15:35> - Physical Exam Vital Signs Temp Pulse Resp BP Pulse Ox 98.5 F 75 16 153/87 H 94 02/15/18 14:19 02/15/18 14:19 02/15/18 14:19 02/15/18 14:19 02/15/18 14:19 Oxygen Delivery Method Room Air Weight: 71.8 kg Body Mass Index (BMI) 24.7 Intake and Output for Last 24 Hours 02/13/18 02/14/18 02/15/18 23:59 23:59 23:59 Intake Total 3221 / 3221 Output Total 1550 / 1550 Balance 1671 / 1671 Laboratory Tests Past 24 Hrs 02/15/18 02/15/18 02/15/18 04:51 05:45 05:45 WBC 8.7 RBC 4.02 L Hgb 10.9 L Hct 35.0 L MCV 87.1 MCH 27.1 MCHC 31.1 L RDW 14.7 H RDW Differential 46.9 H Plt Count 271 MPV 9.3 Sodium 145 Potassium 5.1 Chloride 114 H Carbon Dioxide 24.0 Anion Gap 7 BUN 25 H Creatinine 1.38 H Estim Creat Clear Calc 49.23 Est GFR (MDRD) Af Amer 66 Est GFR (MDRD) Non-Af 55 L BUN/Creatinine Ratio 18.1 Glucose 85 Calcium 7.7 L Troponin I < 0.02 Urine Color Yellow Urine Clarity Clear Urine pH 7.0 Ur Specific [place] 1.010 Urine Protein Negative Urine Glucose (UA) Normal Urine Ketones Negative Urine Occult Blood Negative Urine Nitrite Negative Urine Bilirubin Negative Urine Urobilinogen Normal Ur Leukocyte Esterase Negative Urine RBC 0 SEEN Urine WBC 0 SEEN Ur Squamous Epith Cells 0 SEEN Urine Bacteria 0 SEEN Urine Mucus 0 SEEN 02/15/18 10:25 WBC RBC Hgb 10.9 L Hct 35.1 L MCV MCH MCHC RDW RDW Differential Plt Count MPV Sodium Potassium Chloride Carbon Dioxide Anion Gap BUN Creatinine Estim Creat Clear Calc Est GFR (MDRD) Af Amer Est GFR (MDRD) Non-Af BUN/Creatinine Ratio Glucose Calcium Troponin I Urine Color Urine Clarity Urine pH Ur Specific [place] Urine Protein Urine Glucose (UA) Urine Ketones Urine Occult Blood Urine Nitrite Urine Bilirubin Urine Urobilinogen Ur Leukocyte Esterase Urine RBC Urine WBC Ur Squamous Epith Cells Urine Bacteria Urine Mucus Assessment/Plan Patient was seen and examined independently of physician access services assistant Satish Ramirez. I agree with his above interval history, physical exam and assessment and plan. Complains of crampy abdominal discomfort. Slight dark reddish liquid stool in the colostomy bag. Denies any dizziness or palpitations. His blood pressure is uncontrolled. He has history of aortic aneurysm with diameter more than 7.7 cm. Patient is on IV hydralazine 5mg prn patient to carvedilol and enalapril. Hemoglobin remains stable, remains on IV PPI. Aware that he is being kept n.p.o. for colonoscopy after midnight. Code Visit Inpatient E&M: 81830 Subs Hosp L3
[2018-02-15] MEDS: hydrALAZINE 20 MG/ML Vial 5 MG IV (11:16)
--- NOTE | 2018-02-15 11:22 | PCM.CONS.GEN ---
Reason for Consult Date of Consultation: 02/15/18 Reason for Consultation: GI bleeding History of Present Illness: The patient is a 67 year old M I am seeing for surgical consultation in conjunction with Dr. Winnie Wayne. The patient presented to the emergency department at [facility] for complaints of lower abdominal pain and associated bloody stoma output which he states started around 10 pm last night. He describes the pain as crampy and diffuse across the lower abdomen. He has had some associated nausea and malaise. The patient has had a prior sigmoid colectomy with colostomy when he required emergency surgery for strangulated hernia with resulting perforation and peritoneal sepsis. The patient notes a history of multiple GI bleeds in the past, states most recently in the last month when he was first seen at [facility] and then transferred to [facility]. He states he did not require blood transfusions or undergo endoscopy procedures at that time, though he has with several of his bleeding episodes in the past. The patient tells me he has had a colonoscopy in the last few months in [place] and denies any problems with sedation for that procedure, those records are not currently available for review. [facility] resides in [facility]. Patient had a CT scan performed in the ED which showed colonic diverticulosis and diverting left lower quadrant colostomy, 7.7 cm abdominal aortic aneurysm similar to previous study. Hemoglobin on presentation to emergency department was 11.5 and currently is 10.9. He was admitted to PCU and is currently being monitored and treated with fluids, general surgery was consulted for further evaluation and possible endoscopy. Patient has multiple medical comorbidities including the known 7.7 cm abdominal aortic aneurysm-has followed with vascular surgery and previously planned to get this repaired, however that surgery has been delayed because of multiple medical complications including the strangulated hernia. He is also to have CABG performed prior to aneurysm repair for coronary artery disease. Other significant medical conditions include hypertension, hyperlipidemia, COPD, chronic kidney disease. Past Medical History Past Medical History (Chronic Problems): Chronic Problems History of colostomy (Chronic) History of obstructed inguinal hernia status post colostomy in January 2017 Colon polyp (Chronic) Chronic back pain (Chronic) AAA (abdominal aortic aneurysm) (Chronic) 6.2 cm Hypertension (Chronic) COPD (chronic obstructive pulmonary disease) (Chronic) mild CAD (coronary artery disease) (Chronic) left main RCA LAD referred for CABG CKD (chronic kidney disease) stage 3, GFR 30-59 ml/min (Chronic) BPH (benign prostatic hyperplasia) (Chronic) Tenuous home situation (Chronic) Atherosclerotic peripheral vascular disease (Chronic) Anemia (Chronic) Hyperlipidemia (Chronic) Congestive heart failure (Chronic) Allergies ciprofloxacin [From Cipro] Allergy (Verified 01/04/18 23:40) Unknown Penicillins [PCN] Allergy (Verified 02/15/18 03:35) Unknown Iodinated Contrast- Oral and IV Dye [CT] Adverse Reaction (Verified 02/15/18 03:35) Rash Home Medications: Ambulatory Orders Medication Instructions Recorded Atorvastatin Calcium [Lipitor] 80 mg PO DAILY 01/05/18 Hydrocodone Bitart/Apap 5-325 1 tablet PO Q4H PRN PRN 01/05/18 [[place] 5MG-325MG] Isosorbide Mononitrate [Isosorbide 30 mg PO DAILY 01/05/18 Mononitrate ER] Pantoprazole Sodium 40 mg PO DAILY 01/05/18 Tamsulosin HCl [Flomax] 0.8 mg PO QHS 01/05/18 Amlodipine Besylate [Norvasc] 2.5 mg PO QHS 01/25/18 Carvedilol [Coreg (Beta Chase)] 25 mg PO BID 01/25/18 Dicyclomine HCl [Bentyl] 10 mg PO BREAKFAST 01/25/18 Dicyclomine HCl [Bentyl] 10 mg PO QHS 01/25/18 Polyethylene Glycol 3350 [Miralax] 17 gm PO BID 02/15/18 Senna/Docusate Sodium [Senokot-S, 1 tablet PO BID 02/15/18 Kerri-Colace] Surgical History: appendectomy, colectomy - Sigmoid hemicolectomy with colostomy., coronary bypass surgery Psychiatric History: No pertinent psych hx Smoking Status: Former smoker Tobacco Use: Cigarettes - *Family History Maternal History Items: No pertinent history Paternal History Items: No pertinent history Review of Systems Constitutional: Reports: Anorexia. Denies: Fever Eyes: Denies: Vision Change Cardiovascular: Denies: Chest Pain, Chest Pressure Respiratory: Reports: - - COPD Gastrointestinal: Reports: Abdominal Pain, Hematochezia, Nausea, Vomiting. Denies: Diarrhea, Hematemesis Skin: Denies: Skin Changes Hematologic/ Lymphatic: Reports: - - frequent episodes of GI bleeding Patient Problems: Active and Suspected Problems Lower GI bleed (Acute) - Physical Exam General: Alert, Oriented x3, Cooperative, No apparent distress HEENT: Atraumatic, Normocephalic Oral: Moist Mucosa Neck: Supple Lungs: Clear to auscultation, Normal air movement Cardiovascular: Regular rate, Regular Rhythm Abdomen: Bowel Sounds Present, Soft, Tender - +mild diffuse TTP lower abdomen without rebound or guarding. Brown stool present in stoma bag Extremities: No clubbing, No cyanosis Psych/Mental Status: Normal Affect Vital Signs Temp Pulse Resp BP Pulse Ox 98.1 F 67 14 180/92 H 94 02/15/18 09:00 02/15/18 09:00 02/15/18 09:00 02/15/18 11:04 02/15/18 09:00 Oxygen Delivery Method Room Air Weight: 158 lb 4.67 oz Body Mass Index (BMI) 24.7 Intake and Output for Last 24 Hours 02/13/18 02/14/18 02/15/18 23:59 23:59 23:59 Intake Total 2121 / 2121 Output Total 450 / 450 Balance 1671 / 1671 Laboratory Tests Past 24 Hrs 02/15/18 02/15/18 02/15/18 04:51 05:45 05:45 WBC 8.7 RBC 4.02 L Hgb 10.9 L Hct 35.0 L MCV 87.1 MCH 27.1 MCHC 31.1 L RDW 14.7 H RDW Differential 46.9 H Plt Count 271 MPV 9.3 Sodium 145 Potassium 5.1 Chloride 114 H Carbon Dioxide 24.0 Anion Gap 7 BUN 25 H Creatinine 1.38 H Estim Creat Clear Calc 49.23 Est GFR (MDRD) Af Amer 66 Est GFR (MDRD) Non-Af 55 L BUN/Creatinine Ratio 18.1 Glucose 85 Calcium 7.7 L Troponin I < 0.02 Urine Color Yellow Urine Clarity Clear Urine pH 7.0 Ur Specific [place] 1.010 Urine Protein Negative Urine Glucose (UA) Normal Urine Ketones Negative Urine Occult Blood Negative Urine Nitrite Negative Urine Bilirubin Negative Urine Urobilinogen Normal Ur Leukocyte Esterase Negative Urine RBC 0 SEEN Urine WBC 0 SEEN Ur Squamous Epith Cells 0 SEEN Urine Bacteria 0 SEEN Urine Mucus 0 SEEN 02/15/18 10:25 WBC RBC Hgb 10.9 L Hct 35.1 L MCV MCH MCHC RDW RDW Differential Plt Count MPV Sodium Potassium Chloride Carbon Dioxide Anion Gap BUN Creatinine Estim Creat Clear Calc Est GFR (MDRD) Af Amer Est GFR (MDRD) Non-Af BUN/Creatinine Ratio Glucose Calcium Troponin I Urine Color Urine Clarity Urine pH Ur Specific [place] Urine Protein Urine Glucose (UA) Urine Ketones Urine Occult Blood Urine Nitrite Urine Bilirubin Urine Urobilinogen Ur Leukocyte Esterase Urine RBC Urine WBC Ur Squamous Epith Cells Urine Bacteria Urine Mucus Assessment/Plan Active and Suspected Problems Lower GI bleed (Acute) I have reviewed my findings with Dr. Wayne, who will also independently evaluate the patient. Lower GI bleeding and abdominal pain-Pending Dr. Wayne's evaluation, would plan for colonoscopy likely tomorrow to be performed under Monitored Anesthetic Care due to patient's multiple medical comorbidities. Will plan for clear liquid diet and Golytely bowel preparation today per surgeon We appreciate the opportunity to participate in this patient's care.
--- NOTE | 2018-02-15 11:43 | CON.PCM_ITS ---
Reason for Consult Date of Consultation: 02/15/18 Reason for Consultation: GI bleeding History of Present Illness: The patient is a 67 year old M I am seeing for surgical consultation in conjunction with Dr. Winnie Wayne. The patient presented to the emergency department at [facility] for complaints of lower abdominal pain and associated bloody stoma output which he states started around 10 pm last night. He describes the pain as crampy and diffuse across the lower abdomen. He has had some associated nausea and malaise. The patient has had a prior sigmoid colectomy with colostomy when he required emergency surgery for strangulated hernia with resulting perforation and peritoneal sepsis. The patient notes a history of multiple GI bleeds in the past, states most recently in the last month when he was first seen at [facility] and then transferred to [facility]. He states he did not require blood transfusions or undergo endoscopy procedures at that time, though he has with several of his bleeding episodes in the past. The patient tells me he has had a colonoscopy in the last few months in [place] and denies any problems with sedation for that procedure, those records are not currently available for review. Patient [facility] resides in [facility]. Patient had a CT scan performed in the ED which showed colonic diverticulosis and diverting left lower quadrant colostomy, 7.7 cm abdominal aortic aneurysm similar to previous study. Hemoglobin on presentation to emergency department was 11.5 and currently is 10.9. He was admitted to PCU and is currently being monitored and treated with fluids, general surgery was consulted for further evaluation and possible endoscopy. Patient has multiple medical comorbidities including the known 7.7 cm abdominal aortic aneurysm-has followed with vascular surgery and previously planned to get this repaired, however that surgery has been delayed because of multiple medical complications including the strangulated hernia. He is also to have CABG performed prior to aneurysm repair for coronary artery disease. Other significant medical conditions include hypertension, hyperlipidemia, COPD, chronic kidney disease. Past Medical History Past Medical History (Chronic Problems): Chronic Problems History of colostomy (Chronic) History of obstructed inguinal hernia status post colostomy in January 2017 Colon polyp (Chronic) Chronic back pain (Chronic) AAA (abdominal aortic aneurysm) (Chronic) 6.2 cm Hypertension (Chronic) COPD (chronic obstructive pulmonary disease) (Chronic) mild CAD (coronary artery disease) (Chronic) left main RCA LAD referred for CABG CKD (chronic kidney disease) stage 3, GFR 30-59 ml/min (Chronic) BPH (benign prostatic hyperplasia) (Chronic) Tenuous home situation (Chronic) Atherosclerotic peripheral vascular disease (Chronic) Anemia (Chronic) Hyperlipidemia (Chronic) Congestive heart failure (Chronic) Allergies ciprofloxacin [From Cipro] Allergy (Verified 01/04/18 23:40) Unknown Penicillins [PCN] Allergy (Verified 02/15/18 03:35) Unknown Iodinated Contrast- Oral and IV Dye [CT] Adverse Reaction (Verified 02/15/18 03: 35) Rash Home Medications: Ambulatory Orders Medication Instructions Recorded Atorvastatin Calcium [Lipitor] 80 mg PO DAILY 01/05/18 Hydrocodone Bitart/Apap 5-325 1 tablet PO Q4H PRN PRN 01/05/18 [[place] 5MG-325MG] Isosorbide Mononitrate [Isosorbide 30 mg PO DAILY 01/05/18 Mononitrate ER] Pantoprazole Sodium 40 mg PO DAILY 01/05/18 Tamsulosin HCl [Flomax] 0.8 mg PO QHS 01/05/18 Amlodipine Besylate [Norvasc] 2.5 mg PO QHS 01/25/18 Carvedilol [Coreg (Beta Chase)] 25 mg PO BID 01/25/18 Dicyclomine HCl [Bentyl] 10 mg PO BREAKFAST 01/25/18 Dicyclomine HCl [Bentyl] 10 mg PO QHS 01/25/18 Polyethylene Glycol 3350 [Miralax] 17 gm PO BID 02/15/18 Senna/Docusate Sodium [Senokot-S, 1 tablet PO BID 02/15/18 Kerri-Colace] Surgical History: appendectomy, colectomy - Sigmoid hemicolectomy with colostomy., coronary bypass surgery Psychiatric History: No pertinent psych hx Smoking Status: Former smoker Tobacco Use: Cigarettes - *Family History Maternal History Items: No pertinent history Paternal History Items: No pertinent history Review of Systems Constitutional: Reports: Anorexia. Denies: Fever Eyes: Denies: Vision Change Cardiovascular: Denies: Chest Pain, Chest Pressure Respiratory: Reports: - - COPD Gastrointestinal: Reports: Abdominal Pain, Hematochezia, Nausea, Vomiting. Denies: Diarrhea, Hematemesis Skin: Denies: Skin Changes Hematologic/ Lymphatic: Reports: - - frequent episodes of GI bleeding Patient Problems: Active and Suspected Problems Lower GI bleed (Acute) - Physical Exam General: Alert, Oriented x3, Cooperative, No apparent distress HEENT: Atraumatic, Normocephalic Oral: Moist Mucosa Neck: Supple Lungs: Clear to auscultation, Normal air movement Cardiovascular: Regular rate, Regular Rhythm Abdomen: Bowel Sounds Present, Soft, Tender - +mild diffuse TTP lower abdomen without rebound or guarding. Brown stool present in stoma bag Extremities: No clubbing, No cyanosis Psych/Mental Status: Normal Affect Vital Signs Temp Pulse Resp BP Pulse Ox 98.1 F 67 14 180/92 H 94 02/15/18 09:00 02/15/18 09:00 02/15/18 09:00 02/15/18 11:04 02/15/18 09:00 Oxygen Delivery Method Room Air Weight: 158 lb 4.67 oz Body Mass Index (BMI) 24.7 Intake and Output for Last 24 Hours 02/13/18 02/14/18 02/15/18 23:59 23:59 23:59 Intake Total 2121 / 2121 Output Total 450 / 450 Balance 1671 / 1671 Laboratory Tests Past 24 Hrs 02/15/18 02/15/18 02/15/18 04:51 05:45 05:45 WBC 8.7 RBC 4.02 L Hgb 10.9 L Hct 35.0 L MCV 87.1 MCH 27.1 MCHC 31.1 L RDW 14.7 H RDW Differential 46.9 H Plt Count 271 MPV 9.3 Sodium 145 Potassium 5.1 Chloride 114 H Carbon Dioxide 24.0 Anion Gap 7 BUN 25 H Creatinine 1.38 H Estim Creat Clear Calc 49.23 Est GFR (MDRD) Af Amer 66 Est GFR (MDRD) Non-Af 55 L BUN/Creatinine Ratio 18.1 Glucose 85 Calcium 7.7 L Troponin I < 0.02 Urine Color Yellow Urine Clarity Clear Urine pH 7.0 Ur Specific [place] 1.010 Urine Protein Negative Urine Glucose (UA) Normal Urine Ketones Negative Urine Occult Blood Negative Urine Nitrite Negative Urine Bilirubin Negative Urine Urobilinogen Normal Ur Leukocyte Esterase Negative Urine RBC 0 SEEN Urine WBC 0 SEEN Ur Squamous Epith Cells 0 SEEN Urine Bacteria 0 SEEN Urine Mucus 0 SEEN 02/15/18 10:25 WBC RBC Hgb 10.9 L Hct 35.1 L MCV MCH MCHC RDW RDW Differential Plt Count MPV Sodium Potassium Chloride Carbon Dioxide Anion Gap BUN Creatinine Estim Creat Clear Calc Est GFR (MDRD) Af Amer Est GFR (MDRD) Non-Af BUN/Creatinine Ratio Glucose Calcium Troponin I Urine Color Urine Clarity Urine pH Ur Specific [place] Urine Protein Urine Glucose (UA) Urine Ketones Urine Occult Blood Urine Nitrite Urine Bilirubin Urine Urobilinogen Ur Leukocyte Esterase Urine RBC Urine WBC Ur Squamous Epith Cells Urine Bacteria Urine Mucus Assessment/Plan Active and Suspected Problems Lower GI bleed (Acute) I have reviewed my findings with Dr. Wayne, who will also independently evaluate the patient. Lower GI bleeding and abdominal pain-Pending Dr. Wayne's evaluation, would plan for colonoscopy likely tomorrow to be performed under Monitored Anesthetic Care due to patient's multiple medical comorbidities. Will plan for clear liquid diet and Golytely bowel preparation today per surgeon We appreciate the opportunity to participate in this patient's care.
[2018-02-15] MEDS: Potassium Chloride 40 MEQ in 0.9% Normal Saline 1,000 ML 75 MEQ IV (12:31)
--- NOTE | 2018-02-15 12:35 | CASEMGMT ---
Social Work Pt next of kin is Jasmyn Hawkins, a friend. SW met with pt to discuss advance directives. Pt states he does not have a health care POA nor a living will. SW explained what a health care POA is and that a spouse, followed by children would be contacted if he did not have a HCPOA and was unable to make decisions. Pt states he has no spouse nor children and does not wish to complete a HCPOA. Pt stating Jasmyn will make the decisions if he is unable. SW explained that a HCPOA document is needed for health care providers to provide her with information or allow her to make a decision. Pt refuses to complete HCPOA stating he is still able to make own decisions. SW explained that the HCPOA would not go into effect until the event he was not able to make own decisions. Pt continues to adamantly refuse to complete paperwork. AARTI inquired about living will and explain its purpose. Pt stating he would want full life sustaining treatment and does not want to complete a living will. SW informed pt if he changes his mind, SW can assist with advance directives. TANK Rowe
[2018-02-15] MEDS: Electrolyte Solution/Peg's 4000 ML PO (16:04)
--- NOTE | 2018-02-15 16:07 | NURSING ---
patient care, med administration, and documentation by Reyes Dickerson, student nurse, done under the supervision of this RN.
[2018-02-15 17:01] LABS: Hematocrit 38.1 % (40-54); Hemoglobin 11.9 g/dl (13.0-16.5)
[2018-02-15] MEDS: Tamsulosin HCl 0.4 MG Capsule 0.8 MG PO (22:04)
[2018-02-15 22:43] LABS: Hematocrit 36.8 % (40-54); Hemoglobin 11.3 g/dl (13.0-16.5)
[2018-02-16] VITALS (16 sets, daily range): BP systolic 141–173; BP diastolic 59–101; PULSE 64–75; RESP 14–18; TEMP 36.6–37.5; O2SAT 92–96
--- NOTE | 2018-02-16 | GASB_PTH ---
PATIENT: CATHY MARQUIS LOC: [facility] U#:[id number] AGE/SX: 67/M ROOM: [facility] RE02/15/[address]: Dr. Korin Triplett MD : 1950 BED: 1 DIS: 02/16/2018 SPEC #: [id number] RECD: 02/16/18 09:53 STATUS: DANI REQ #: [id number] OLIVIA: 02/16/18 00:[address]: Kerwin Busch DEPT: SURGICAL PATHOLOGY RECD BY: Jeovany Wong ENTERED: 02/16/18 09:53 SP TYPE: Gastric Bx OTHR DR: MD Dr. Winnie Cifuentes MD Dr. Prakash Chand, MD Dr. Paul Nielsen, MD Dr. Richard Guttman, MD Amanda Graf, PA-C Amanda Griffith, PA-C Tissues: A - Gastric mucous membrane B - Cecum, NOS Procedures: Special Stain Group II Surgery Specimen Level IV Alcian Blue/PAS (control) Comments: @ Ordering doctor for SUIV edited from to @ by CHNIO at 02/16/18 1402 @ Submitting doctor edited from to @ by CHINO at 02/16/18 1402 HEADER OPERATION: EGD and colonoscopy PRE-OP DIAGNOSIS: GI bleed TISSUE SUBMITTED: A ? Antral biopsy for histo and H. pylori, B ? Cecal biopsy, ? chronic ischemia MICROSCOPIC DIAGNOSIS A. Gastric antrum, biopsy: Mild to moderate chronic gastritis. Intestinal metaplasia. No evidence of dysplasia. B. Cecum, biopsy: No significant pathologic change. Mild melanosis coli. See comment. AM:alfa 02/17/18 COMMENT A. The results of immunohistochemistry for Helicobacter pylori will be reported separately ([id number]). Alcian blue/PAS stain with matched control supports the above diagnosis. B. Eosinophils are increased in the mucosa. The significance of this is unclear. Clinical correlation is suggested. MICROSCOPIC DESCRIPTION Slides are reviewed. GROSS DESCRIPTION A - Received in fixative is one container labeled with the patient's name and designated antral biopsy. The specimen consists of one irregular fragment of light jiang soft tissue that measures 0.5 x 0.2 x 0.1 cm. The specimen is totally submitted in one cassette. B - Received in fixative is one container labeled with the patient's name and designated cecal biopsy. The specimen consists of two irregular fragments of light jiang soft tissue that in aggregate measure 0.5 x 0.2 x 0.1 cm. The specimen is totally submitted in one cassette. / AM:alfa 02/16/18 TC:3 CPT: 50403 x2, 73061
--- NOTE | 2018-02-16 | IMM_PTH ---
PATIENT: CATHY MARQUIS LOC: [facility] U#:[id number] AGE/SX: 67/M ROOM: [facility] RE02/15/[address]: Dr. Korin Triplett MD : 1950 BED: 1 DIS: 02/16/2018 SPEC #: [id number] RECD: 02/17/18 10:41 STATUS: SOUT REQ #: [id number] OLIVIA: 02/16/18 00:[address]: Korin Triplett DEPT: IMMUNOHISTOCHEMISTRY RECD BY: Lula Velez ENTERED: 02/17/18 10:42 SP TYPE: IMMUNO OTHR DR: MD Dr. Tai Ojeda MD Dr. Paul Nielsen, MD Dr. Richard Guttman, MD Amanda Graf, PA-C Amanda Griffith, PA-C Tissues: A - Stomach, NOS Procedures: H Pylori (initial) PHYSICIAN & INSTITUTION [place] [id number] SPECIMEN INFORMATION: Tissue Source: A ? Antral biopsy Clinical Info: GI bleed Specimen Number: [id number] CPT code: 33432 METHODOLOGY: Deparaffinized sections of prefer/formalin-fixed tissue or PAP/DQ stained slides are incubated with monoclonal/polyclonal antibodies/oligonucleotide probes. Localization is made via biotin free immunoperoxidase method. Appropriate controls are performed and reacted as expected. Results on target cell population are indicated in the following table: RESULTS: ANTIBODY / CLONE RESULT Block A H Pylori (polyclonal) negative These tests were developed and their performance characteristics determined by [facility]. They may not have been cleared or approved by the U.S. Food and Drug Administration. The FDA has determined that such clearance or approval is not necessary. INTERPRETATION: A. Antral biopsy: Negative for Helicobacter pylori organisms. AM:alfa 02/17/18
[2018-02-16] MEDS: Zolpidem Tartrate 5 MG Tablet PO (00:16)
[2018-02-16] MEDS: Potassium Chloride 40 MEQ in 0.9% Normal Saline 1,000 ML 75 MEQ IV (02:54)
--- NOTE | 2018-02-16 04:00 | EKG12_ITS ---
Test Reason : AM Blood Pressure : / mmHG Vent. Rate : 063 BPM Atrial Rate : 063 BPM P-R Int : 200 ms QRS Dur : 098 ms QT Int : 392 ms P-R-T Axes : 070 070 084 degrees QTc Int : 401 ms Normal sinus rhythm Normal ECG When compared with ECG of 15-FEB-2018 05:01, MANUAL COMPARISON REQUIRED, DATA IS UNCONFIRMED Confirmed by CLAUDIA VELASCO, ELIEZER ([id number]), deputy editor in chief DEREK TABOR ([id number]) on 02/17/2018 1:24:06 PM Referred By: OSMIN Confirmed By:ELIEZER TAYLOR MD
[2018-02-16] MEDS: Morphine 2 MG/ML Syringe IV ×2 (04:16→09:38)
[2018-02-16] MEDS: 0.9% NaCl Peripheral Flush Adult/Peds IV ×2 (04:17→09:38)
[2018-02-16 05:31] LABS: Absolute Lymphocyte Count 1.44 X10^3/ul (0.83-4.51); Absolute Neutrophil Count 5.1 X10^3/uL (2.0-7.7); Basophil# 0.06 X10^3/uL; Basophil% 0.7 % (0-1); Eosinophil# 1.28 X10^3/uL; Eosinophils% 14.6 % (0-5); Hematocrit 36.8 % (40-54); Hemoglobin 11.5 g/dl (13.0-16.5); Lymphocyte # 1.44 X10^3/ul (4.0); Lymphocyte % 16.4 % (19-41); Mean Corp Hgb Conc 31.3 g/gl (32-36); Mean Corpuscular Hgb 27.5 pg (27.0-32.0); Mean Platelet Vol. 9.6 fl (6.2-12.0); Monocyte# 0.95 X10^3/uL; Monocyte% 10.8 % (0-10); Neutrophil # 5.05 X10^3/uL (2.7-7.7); Neutrophil % 57.4 % (47-70); Platelet Count 279 K/mm3 (150-450); RBC Distribution Width CV 14.6 % (11.6-14.6); RBC Distribution Width SD 46.6 fl (35.1-43.9); Red Blood Count 4.18 M/mm3 (4.6-6.2); White Blood Count 8.8 K/mm3 (4.4-11.0)
[2018-02-16 05:36] LABS: Prothrombin Time (Protime)PT. 13.4 SECONDS (11.7-14.9)
[2018-02-16 05:37] LABS: Partial Thromboplast Time 30.3 Seconds (24.1-36.2)
[2018-02-16 05:43] LABS: AST(SGOT) 13 U/L (15-37); Alanine Aminotransfer ALT/SGPT 24 U/L (16-61); Albumin, Serum 2.9 g/dL (3.2-5.0); Alkaline Phosphatase 148 U/L (45-117); Anion Gap 7 (5-15); BUN 20 mg/dL (7-18); BUN/Creat Ratio 13.4 RATIO (10-20); Bilirubin, Direct 0.09 mg/dL (0.00-0.30); Chloride 114 mmol/L (98-107); Creatinine, Serum 1.49 mg/dL (0.70-1.30); EST Glomerular Filtration Rate 50 mL/min (>60); Est Glom Filt Rate - Afr Amer 61 mL/min (>60); Estimated Creatinine Clearance 44.01 ml/min; Globulin 3.2 g/dL (2.2-4.2); Glucose 78 mg/dL (74-106); Phosphorus 2.8 mg/dL (2.5-4.9); Protein, Total 6.1 g/dL (6.4-8.2); Sodium Level 145 mmol/L (136-145)
[2018-02-16 05:52] LABS: POSITIVE COUNT NO; POSITIVE DIFFERENTIAL NO; POSITIVE MORPHOLOGY NO
--- NOTE | 2018-02-16 09:24 | OP.PCM_ITS ---
Report of Operation Date of Procedure: 02/16/18 Pre-Operative Diagnosis: abdominal pain, recurring occult GI bleeding Post-Operative Diagnosis: mild gastritis, lax lower esophageal sphincter without demonstrated hiatal hernia, mild distal esophagitis. Questionable chronic ischemia on the posterior aspect of the cecum near the ileocecal valve without signs of fulminant or active ischemia. Few diverticula throughout the transverse colon with more in the sigmoid colon. No signs of bleeding. Upper and lower endoscopy Surgery/Procedure Performed:: EGD with biopsy, colonoscopy with biopsy digital media coordinator: None Type of Anesthesia:: MAC Anesthesiologist: Vipin Forbes - ASA3 Specimen's removed: gastric for H. pylori and path, cecal biopsy Description of Procedure: The patient was brought to the endoscopy suite. Sign in was performed verifying patient, site, planned procedure, critical nursing information, the patient was monitored with cardiac, pulse oximetric, and blood pressure monitoring devices. Monitored anesthetic care was provided for sedation. the patient's IV had infiltrated so we had to replace his IV. Following IV sedation and after the oropharynx was sprayed with Cetacaine spray , a video gastroscope was inserted in the oropharynx and advanced down the esophagus without difficulty. The scope was advanced through the stomach, through the pylorus through the duodenum to the proximal jejunum. the jejunum was unremarkable. There was serna bile in the GI tract with no signs of hemobilia. The duodenum was normal throughout. The antral region. The stomach demonstrated mild gastritis with some friability and nodularity but no signs of bleeding. A biopsy was performed for H. pylori and pathology. The scope was retroflexed, the patient was felt to be a lax lower esophageal sphincter but no hiatal hernia was demonstrated today. The stomach was aspirated air and liquid, as the scope was withdrawn. The patient had mild distal esophagitis was not biopsied. The remainder the esophagus was unremarkable. The patient was positioned for colonoscopy. he had a left lower quadrant stoma which had clear liquid consistencies bowel prep and no signs of blood in the stoma. The video colonoscope was inserted and advanced to the cecum as verified by the ileocecal valve, cecal base anatomic features and palpation. posterior and lateral to the ileocecal valve, the colon had the appearance of mild duskiness of the mucosa, almost like the way the hepatic flexure looks with the liver posterior to the colon that you're seeing somewhat through the colon. Nonetheless, this was not felt to be anatomically where I would visualize the liver. While not looking like active ischemia, it did look slightly grayish, reason the concern for some chronic ischemia. A biopsy was performed at this location. The remainder of the colon demonstrated normal-appearing mucosa and diverticulosis without any sequela of bleeding. The patient tolerated the procedure well and was brought to recovery in stable condition
[2018-02-16] MEDS: Carvedilol 25 MG Tablet PO (09:37)
[2018-02-16] MEDS: hydrALAZINE 20 MG/ML Vial 5 MG IV (09:39)
--- NOTE | 2018-02-16 09:41 | CASEMGMT ---
Addendum entered by Donna Myers 02/16/18 11:38: Social Work Per physican pt ready for d/c. Met with pt in room and he is agreeable to return to [facility] today. SW offered to call contact Jasmyn and inform of d/c and pt denies stating he has already spoke with her and let her know. Transportation arranged with [facility] chair van for 1300 miner pick. Pt and nurse made aware. Orders faxed to [facility] and phone call to Patsy at [facility] with d/c time. No further d/c needs. TANK Rowe Original Note: Social Work Clinical update faxed to Patsy at [facility]. SW will continue to follow for SNF placement. TANK Rowe
[2018-02-16] MEDS: 0.9% Normal Saline 1,000 ML 100 ML IV (09:48)
--- NOTE | 2018-02-16 10:25 | PCM.EXTCARCO ---
<Jose GuadalupeJoann - Last Filed: 02/16/18 10:31> - Diet 02/16/18 10:01 Diet: Regular Diet Is pt able to select menu?: Yes Diet Comments: NPO after midnight for endoscopy scheduled for 02/16/18 - Routine Orders/Code Status Enema Type: Fleetz Enema Frequency: Daily PRN Suppository Type: Dulcolax 10mg Suppository Frequency: Daily PRN Routine Lab Work: CBC, BMP, - - In 3 days and then Q Week Code Status: Full Code - Suggestions for Active Care Change Position every (hours): 2 Times a day to sit in chair: 3 - Therapies Weight Bearing: Full weight bearing Physical Therapy: Eval and Treat Occupational Therapy: Eval and Treat - Allergies/Procedures Done in Hospital Allergies/Adverse Reactions: Allergies ciprofloxacin [From Cipro] Allergy (Verified 01/04/18 23:40) Unknown Penicillins [PCN] Allergy (Verified 02/15/18 03:35) Unknown Iodinated Contrast- Oral and IV Dye [CT] Adverse Reaction (Verified 02/15/18 03:35) Rash Procedures: Colonoscopy - Type of Care/Length of Stay Estimated LOS: More Than 30 Days Type of Care Needed: Skilled Rehab Potential: Fair Prognosis: Fair - Additional Orders/Day of Discharge H&P will serve as current which was dated: 02/15/18 Day of Discharge: 02/16/18 - Dietary and Speech Recommendations Dietitian Recommendations/Changes: Rec adv diet as tolerated to cardiac, low sodium, no gastric stimulant/low residue. Ensure w/ medpass if intake <75% at meals as diet advanced. - Follow Up Care Primary Care Physician: Vamsi Bah MD [Primary Care Provider] - Please follow up with your Primary Care Physician in: 1 Week Please Follow Up With: Saul Esteban MD - [facility] [phone] When: Within one week, please schedule prior to DC Please Follow Up With: Jason Albarran MD - [facility] [phone] When: Within one week, please schedule prior to DC <Korin Triplett - Last Filed: 02/16/18 10:40> - Diet 02/16/18 10:01 Diet: Cardiac Diet Is pt able to select menu?: Yes Diet Comments:
--- NOTE | 2018-02-16 10:31 | TREXTCA.CO_ITS ---
<Jose GuadalupeJoann - Last Filed: 02/16/18 10:31> - Diet 02/16/18 10:01 Diet: Regular Diet Is pt able to select menu?: Yes Diet Comments: NPO after midnight for endoscopy scheduled for 02/16/18 - Routine Orders/Code Status Enema Type: Fleetz Enema Frequency: Daily PRN Suppository Type: Dulcolax 10mg Suppository Frequency: Daily PRN Routine Lab Work: CBC, BMP, - - In 3 days and then Q Week Code Status: Full Code - Suggestions for Active Care Change Position every (hours): 2 Times a day to sit in chair: 3 - Therapies Weight Bearing: Full weight bearing Physical Therapy: Eval and Treat Occupational Therapy: Eval and Treat - Allergies/Procedures Done in Hospital Allergies/Adverse Reactions: Allergies ciprofloxacin [From Cipro] Allergy (Verified 01/04/18 23:40) Unknown Penicillins [PCN] Allergy (Verified 02/15/18 03:35) Unknown Iodinated Contrast- Oral and IV Dye [CT] Adverse Reaction (Verified 02/15/18 03: 35) Rash Procedures: Colonoscopy - Type of Care/Length of Stay Estimated LOS: More Than 30 Days Type of Care Needed: Skilled Rehab Potential: Fair Prognosis: Fair - Additional Orders/Day of Discharge H&P will serve as current which was dated: 02/15/18 Day of Discharge: 02/16/18 - Dietary and Speech Recommendations Dietitian Recommendations/Changes: Rec adv diet as tolerated to cardiac, low sodium, no gastric stimulant/low residue. Ensure w/ medpass if intake <75% at meals as diet advanced. - Follow Up Care Primary Care Physician: Vamsi Bah MD [Primary Care Provider] - Please follow up with your Primary Care Physician in: 1 Week Please Follow Up With: Saul Esteban MD - [facility] [phone] When: Within one week, please schedule prior to DC Please Follow Up With: Jason Albarran MD - [facility] [phone] When: Within one week, please schedule prior to DC <Korin Triplett - Last Filed: 02/16/18 10:40> - Diet 02/16/18 10:01 Diet: Cardiac Diet Is pt able to select menu?: Yes Diet Comments:
--- NOTE | 2018-02-16 10:31 | PCM.DC.SUM ---
<Joann Shi - Last Filed: 02/16/18 10:45> Discharge Date and Diagnosis Date of Admission: 02/15/18 Date of Discharge: 02/16/18 - Primary Discharge Diagnosis Active and Suspected Problems 1. Acute on chronic blood loss anemia secondary to acute lower GI bleed 2. Uncontrolled hypertension 3. Hypokalemia/hyponatremia 4. AAA-7.7 cm - Secondary Discharge Diagnosis Chronic Problems History of colostomy (Chronic) History of obstructed inguinal hernia status post colostomy in January 2017 Colon polyp (Chronic) Chronic back pain (Chronic) AAA (abdominal aortic aneurysm) (Chronic) 6.2 cm Hypertension (Chronic) COPD (chronic obstructive pulmonary disease) (Chronic) mild CAD (coronary artery disease) (Chronic) left main RCA LAD referred for CABG CKD (chronic kidney disease) stage 3, GFR 30-59 ml/min (Chronic) BPH (benign prostatic hyperplasia) (Chronic) Tenuous home situation (Chronic) Atherosclerotic peripheral vascular disease (Chronic) Anemia (Chronic) Hyperlipidemia (Chronic) Congestive heart failure (Chronic) Hospital Course and Treatment Imaging Results: Diagnostic Data Abdomen/Pelvis CT 02/15/18 00:24 IMPRESSION: 1. Large fusiform abdominal aortic aneurysm similar to previous study. Greatest transverse dimension is 7.7 cm. 2. Colonic diverticulosis. 3. Diverting left lower quadrant colostomy. 4. Left-sided renal cysts. 5. Nonspecific lesion within liver. Electronically Signed: Lisa Pope MD at 1:50 EDT , Service support , Operations: None Procedures: Colonoscopy Summary of Care Provided: The patient is a 67 year old M admitted 02/15/18 due to lower GI bleed. Patient has a history of recurrent ER visits due to GI bleed and was recently transferred to [facility] in December and January 2018 where he was discharged after conservative management. Patient reports red blood found in colostomy bag prior to admission. Patient has a history of colostomy which was placed in January 2017 due to obstructed inguinal hernia at [facility]. He also has history of lower GI bleed from polyp near colostomy in April 2017 in which he required 12 units packed red blood cells. CT of abdomen showed large abdominal aortic aneurysm, similar to previous study, 7.7 cm. Colonic diverticulosis, diverting left lower quadrant colostomy, left-sided renal cyst, nonspecific lesion within liver. Dr. Bucsh consulted. Patient underwent EGD/colonoscopy with biopsy 02/16/18 which showed mild gastritis, lax lower esophageal sphincter without demonstrated hiatal hernia, mild distal esophagitis. Questionable chronic ischemia of the posterior aspect of the cecum near the ileocecal valve without signs of fulminant or active ischemia. No signs of bleeding. Hemoglobin has remained stable and patient did not require blood transfusion. No further blood in colostomy. Patient will follow up with GI in 1-2 weeks. Patient follows with Dr. Esteban, [facility] with vascular who follows his AAA. Recommend follow-up within 1 week. He will also follow-up with Dr. Albarran, his cardiothoracic surgeon within 1 week. Patient's blood pressure fairly uncontrolled during admission. His amlodipine was increased to 5 mg daily. Blood pressure better controlled at discharge. Recommend continued close monitoring. Follow-up with primary care physician in 1 week for further adjustments as needed. Patient's other past medical history includes CHF, hyperlipidemia, chronic anemia, BPH, chronic kidney disease stage III, CAD, COPD, chronic back pain. Chronic medical conditions stable at this time. General: Alert, Oriented x3, Cooperative HEENT: Atraumatic, PERRLA, EOMI, Normocephalic Neck: Supple, No JVD, Negative Carotid Bruits Lungs: Clear to auscultation, Normal air movement Cardiovascular: Regular rate, No murmurs Abdomen: Bowel Sounds Present, mild generalized tenderness to palpation Extremities: No edema, Capillary Refill Less than 3 Seconds Skin: No rashes, No breakdown Musculoskeletal: No Tenderness to Palpation of Joints or Extremities Neurological: Cranial nerves II-XII grossly intact Psych/Mental Status: Normal Affect, Appropriate Patient seen and examined prior to discharge. Physical assessment as noted above. Patient is stable for discharge to [facility] facility in which patient resides with the follow-up recommendations as noted above. This patient was seen by KARY Jacinto under the supervision of Dr. Triplett. Home Medications: Medications to take at Discharge Atorvastatin Calcium [Lipitor] 80 mg PO DAILY 01/05/18 Hydrocodone Bitart/Apap 5-325 [[place] 5/325] 1 tablet PO Q4H PRN PRN 01/05/18 Isosorbide Mononitrate [Isosorbide Mononitrate ER] 30 mg PO DAILY 01/05/18 Pantoprazole Sodium 40 mg PO DAILY 01/05/18 Tamsulosin HCl [Flomax] 0.8 mg PO QHS 01/05/18 Carvedilol [Coreg (Beta Chase)] 25 mg PO BID 01/25/18 Dicyclomine HCl [Bentyl] 10 mg PO BREAKFAST 01/25/18 Dicyclomine HCl [Bentyl] 10 mg PO QHS 01/25/18 Polyethylene Glycol 3350 [Miralax] 17 gm PO BID 02/15/18 Senna/Docusate Sodium [Senokot-S] 1 tablet PO BID 02/15/18 Amlodipine [Norvasc] 5 mg PO QHS tablet 02/16/18 Primary Care Physician: Vamsi Bah MD [Primary Care Provider] - Please follow up with your Primary Care Physician in: 1 Week Please Follow Up With: Saul Esteban MD - [facility] [phone] When: Within one week, please schedule prior to DC Please Follow Up With: Jason Albarran MD - [facility] [phone] When: Within one week, please schedule prior to DC Please Follow Up With: Kerwin Busch MD When: 1-2 Weeks Disposition: [facility] facility Minutes spent on discharge:: 35 Patient Condition:: Stable Medical Necessity - Tobacco Use Smoking Status: Former smoker Tobacco Use: Cigarettes Meaningful Use Info Meaningful Use Diagnoses (Choose all that apply): None applicable <Korin Triplett - Last Filed: 02/16/18 14:26> Discharge Date and Diagnosis - Secondary Discharge Diagnosis Chronic Problems History of colostomy (Chronic) History of obstructed inguinal hernia status post colostomy in January 2017 Colon polyp (Chronic) Chronic back pain (Chronic) AAA (abdominal aortic aneurysm) (Chronic) 6.2 cm Hypertension (Chronic) COPD (chronic obstructive pulmonary disease) (Chronic) mild CAD (coronary artery disease) (Chronic) left main RCA LAD referred for CABG CKD (chronic kidney disease) stage 3, GFR 30-59 ml/min (Chronic) BPH (benign prostatic hyperplasia) (Chronic) Tenuous home situation (Chronic) Atherosclerotic peripheral vascular disease (Chronic) Anemia (Chronic) Hyperlipidemia (Chronic) Congestive heart failure (Chronic) Hospital Course and Treatment Summary of Care Provided: The patient is a 67 year old M [] Code Visit Inpatient E&M: 08880 Disch Hosp
--- NOTE | 2018-02-16 10:44 | DS.PCM_ITS ---
<Joann Shi - Last Filed: 02/16/18 10:45> Discharge Date and Diagnosis Date of Admission: 02/15/18 Date of Discharge: 02/16/18 - Primary Discharge Diagnosis Active and Suspected Problems 1. Acute on chronic blood loss anemia secondary to acute lower GI bleed 2. Uncontrolled hypertension 3. Hypokalemia/hyponatremia 4. AAA-7.7 cm - Secondary Discharge Diagnosis Chronic Problems History of colostomy (Chronic) History of obstructed inguinal hernia status post colostomy in January 2017 Colon polyp (Chronic) Chronic back pain (Chronic) AAA (abdominal aortic aneurysm) (Chronic) 6.2 cm Hypertension (Chronic) COPD (chronic obstructive pulmonary disease) (Chronic) mild CAD (coronary artery disease) (Chronic) left main RCA LAD referred for CABG CKD (chronic kidney disease) stage 3, GFR 30-59 ml/min (Chronic) BPH (benign prostatic hyperplasia) (Chronic) Tenuous home situation (Chronic) Atherosclerotic peripheral vascular disease (Chronic) Anemia (Chronic) Hyperlipidemia (Chronic) Congestive heart failure (Chronic) Hospital Course and Treatment Imaging Results: Diagnostic Data Abdomen/Pelvis CT 02/15/18 00:24 IMPRESSION: 1. Large fusiform abdominal aortic aneurysm similar to previous study. Greatest transverse dimension is 7.7 cm. 2. Colonic diverticulosis. 3. Diverting left lower quadrant colostomy. 4. Left-sided renal cysts. 5. Nonspecific lesion within liver. Electronically Signed: Lisa Pope MD at 1:50 EDT , Service support , Operations: None Procedures: Colonoscopy Summary of Care Provided: The patient is a 67 year old M admitted 02/15/18 due to lower GI bleed. Patient has a history of recurrent ER visits due to GI bleed and was recently transferred to [facility] in December and January 2018 where he was discharged after conservative management. Patient reports red blood found in colostomy bag prior to admission. Patient has a history of colostomy which was placed in January 2017 due to obstructed inguinal hernia at [facility]. He also has history of lower GI bleed from polyp near colostomy in April 2017 in which he required 12 units packed red blood cells. CT of abdomen showed large abdominal aortic aneurysm, similar to previous study, 7.7 cm. Colonic diverticulosis, diverting left lower quadrant colostomy, left-sided renal cyst, nonspecific lesion within liver. Dr. Busch consulted. Patient underwent EGD/ colonoscopy with biopsy 02/16/18 which showed mild gastritis, lax lower esophageal sphincter without demonstrated hiatal hernia, mild distal esophagitis. Questionable chronic ischemia of the posterior aspect of the cecum near the ileocecal valve without signs of fulminant or active ischemia. No signs of bleeding. Hemoglobin has remained stable and patient did not require blood transfusion. No further blood in colostomy. Patient will follow up with GI in 1-2 weeks. Patient follows with Dr. Esteban, [facility] with vascular who follows his AAA. Recommend follow-up within 1 week. He will also follow- up with Dr. Albarran, his cardiothoracic surgeon within 1 week. Patient's blood pressure fairly uncontrolled during admission. His amlodipine was increased to 5 mg daily. Blood pressure better controlled at discharge. Recommend continued close monitoring. Follow-up with primary care physician in 1 week for further adjustments as needed. Patient's other past medical history includes CHF, hyperlipidemia, chronic anemia, BPH, chronic kidney disease stage III, CAD, COPD, chronic back pain. Chronic medical conditions stable at this time. General: Alert, Oriented x3, Cooperative HEENT: Atraumatic, PERRLA, EOMI, Normocephalic Neck: Supple, No JVD, Negative Carotid Bruits Lungs: Clear to auscultation, Normal air movement Cardiovascular: Regular rate, No murmurs Abdomen: Bowel Sounds Present, mild generalized tenderness to palpation Extremities: No edema, Capillary Refill Less than 3 Seconds Skin: No rashes, No breakdown Musculoskeletal: No Tenderness to Palpation of Joints or Extremities Neurological: Cranial nerves II-XII grossly intact Psych/Mental Status: Normal Affect, Appropriate Patient seen and examined prior to discharge. Physical assessment as noted above. Patient is stable for discharge to [facility] facility in which patient resides with the follow-up recommendations as noted above. This patient was seen by KARY Jacinto under the supervision of Dr. Triplett. Home Medications: Medications to take at Discharge Atorvastatin Calcium [Lipitor] 80 mg PO DAILY 01/05/18 Hydrocodone Bitart/Apap 5-325 [[place] 5/325] 1 tablet PO Q4H PRN PRN 01/05/18 Isosorbide Mononitrate [Isosorbide Mononitrate ER] 30 mg PO DAILY 01/05/18 Pantoprazole Sodium 40 mg PO DAILY 01/05/18 Tamsulosin HCl [Flomax] 0.8 mg PO QHS 01/05/18 Carvedilol [Coreg (Beta Chase)] 25 mg PO BID 01/25/18 Dicyclomine HCl [Bentyl] 10 mg PO BREAKFAST 01/25/18 Dicyclomine HCl [Bentyl] 10 mg PO QHS 01/25/18 Polyethylene Glycol 3350 [Miralax] 17 gm PO BID 02/15/18 Senna/Docusate Sodium [Senokot-S] 1 tablet PO BID 02/15/18 Amlodipine [Norvasc] 5 mg PO QHS tablet 02/16/18 Primary Care Physician: Vamsi Bah MD [Primary Care Provider] - Please follow up with your Primary Care Physician in: 1 Week Please Follow Up With: Saul Esteban MD - [facility] [phone] When: Within one week, please schedule prior to DC Please Follow Up With: Jason Albarran MD - [facility] [phone] When: Within one week, please schedule prior to DC Please Follow Up With: Kerwin Busch MD When: 1-2 Weeks Disposition: [facility] facility Minutes spent on discharge:: 35 Patient Condition:: Stable Medical Necessity - Tobacco Use Smoking Status: Former smoker Tobacco Use: Cigarettes Meaningful Use Info Meaningful Use Diagnoses (Choose all that apply): None applicable <Korin Triplett - Last Filed: 02/16/18 14:26> Discharge Date and Diagnosis - Secondary Discharge Diagnosis Chronic Problems History of colostomy (Chronic) History of obstructed inguinal hernia status post colostomy in January 2017 Colon polyp (Chronic) Chronic back pain (Chronic) AAA (abdominal aortic aneurysm) (Chronic) 6.2 cm Hypertension (Chronic) COPD (chronic obstructive pulmonary disease) (Chronic) mild CAD (coronary artery disease) (Chronic) left main RCA LAD referred for CABG CKD (chronic kidney disease) stage 3, GFR 30-59 ml/min (Chronic) BPH (benign prostatic hyperplasia) (Chronic) Tenuous home situation (Chronic) Atherosclerotic peripheral vascular disease (Chronic) Anemia (Chronic) Hyperlipidemia (Chronic) Congestive heart failure (Chronic) Hospital Course and Treatment Summary of Care Provided: The patient is a 67 year old M [] Code Visit Inpatient E&M: 35171 Disch Hosp
[2018-02-16] MEDS: Dicyclomine 10 MG Capsule PO (10:47)
[2018-02-16] MEDS: amLODIPine 5 MG Tablet PO (10:47)
--- NOTE | 2018-02-16 11:43 | NURSING ---
Addendum entered by She Garcia 02/16/18 12:14: called [facility] and let them know that pt need to have appointments schedule for cardiology and vascular. Original Note: called report to Ginny @ [facility]
== END 2018-02-16 13:27 | disposition skilled nursing facility (03) | DRG 378 ==
LOC: ED 01:57 → PCU 03:01
PROVIDERS: Physician Assistant; Surgery; Admitting Provider Internal Medicine; Emergency Provider Emergency Medicine; Family Provider Family Medicine; PCP Family Medicine; Visit Provider Internal Medicine
PROC: 0DJD8ZZ Inspection of Lower Intestinal Tract, Via Natural or Artificial Opening Endoscopic (ICD-10-PCS; CPT 45378; principal; 2018-02-16 07:25)
DX: K92.2 Gastrointestinal hemorrhage, unspecified (principal); D62 Acute posthemorrhagic anemia; I13.0 Hypertensive heart and chronic kidney disease with heart failure and stage 1 through stage 4 chronic kidney disease, or unspecified chronic kidney disease; E87.1 Hypo-osmolality and hyponatremia; K31.89 Other diseases of stomach and duodenum; K63.89 Other specified diseases of intestine; K57.30 Diverticulosis of large intestine without perforation or abscess without bleeding; K29.50 Unspecified chronic gastritis without bleeding; K22.8 Other specified diseases of esophagus; K21.0 Gastro-esophageal reflux disease with esophagitis; N18.3 Chronic kidney disease, stage 3 (moderate); I50.9 Heart failure, unspecified; E87.6 Hypokalemia; E83.51 Hypocalcemia; I71.4 Abdominal aortic aneurysm, without rupture; I25.10 Atherosclerotic heart disease of native coronary artery without angina pectoris; I25.2 Old myocardial infarction; E78.5 Hyperlipidemia, unspecified; E78.00 Pure hypercholesterolemia, unspecified; J44.9 Chronic obstructive pulmonary disease, unspecified; N40.0 Benign prostatic hyperplasia without lower urinary tract symptoms; I70.209 Unspecified atherosclerosis of native arteries of extremities, unspecified extremity; N28.1 Cyst of kidney, acquired; K76.9 Liver disease, unspecified; M54.9 Dorsalgia, unspecified; G89.29 Other chronic pain; Z90.49 Acquired absence of other specified parts of digestive tract; Z93.3 Colostomy status; Z86.010 Personal history of colon polyps; Z87.891 Personal history of nicotine dependence; Z87.19 Personal history of other diseases of the digestive system; Z79.899 Other long term (current) drug therapy
CPT/HCPCS: 36415; 74176; 80048; 80053; 80076; 81001; 83605; 83735; 84100; 84484; 85014; 85018; 85025; 85027; 85610; 85730; 86850; 86900; 88305; 88313; 88342; 93005; 99284; J7030; A4216; J0610; J2405

== ENCOUNTER → 2018-04-27 10:43 | Outpatient (CLI) | payer MEDICARE, SELFPAY ==
[2018-04-27 12:48] LABS: Absolute Lymphocyte Count 1.25 X10^3/ul (0.83-4.51); Absolute Neutrophil Count 3.8 X10^3/uL (2.0-7.7); Basophil# 0.06 X10^3/uL; Basophil% 0.8 % (0-1); Eosinophil# 1.24 X10^3/uL; Eosinophils% 17.3 % (0-5); Hematocrit 39.7 % (40-54); Hemoglobin 12.3 g/dl (13.0-16.5); Lymphocyte # 1.25 X10^3/ul (4.0); Lymphocyte % 17.4 % (19-41); Mean Corpuscular Hgb 26.6 pg (27.0-32.0); Mean Corpuscular Volume 85.7 fL (80-94); Mean Platelet Vol. 10.9 fl (6.2-12.0); Monocyte# 0.79 X10^3/uL; Neutrophil # 3.82 X10^3/uL (2.7-7.7); Neutrophil % 53.4 % (47-70); Platelet Count 266 K/mm3 (150-450); RBC Distribution Width CV 15.5 % (11.6-14.6); RBC Distribution Width SD 48.5 fl (35.1-43.9); Red Blood Count 4.63 M/mm3 (4.6-6.2); White Blood Count 7.2 K/mm3 (4.4-11.0)
[2018-04-27 12:50] LABS: POSITIVE COUNT NO; POSITIVE DIFFERENTIAL NO; POSITIVE MORPHOLOGY NO
[2018-04-27 13:08] LABS: Vitamin D,25 Hydroxy 39.3 ng/mL (29.95-100.01)
[2018-04-27 13:16] LABS: ALB/GLOB Ratio 0.8 RATIO (0.9-2.4); AST(SGOT) 20 U/L (15-37); Alanine Aminotransfer ALT/SGPT 25 U/L (16-61); Albumin, Serum 3.4 g/dL (3.2-5.0); Alkaline Phosphatase 157 U/L (45-117); Anion Gap 6 (5-15); BUN 22 mg/dL (7-18); BUN/Creat Ratio 12.4 RATIO (10-20); Calcium,Total 8.4 mg/dL (8.5-10.1); Chloride 106 mmol/L (98-107); Creatinine, Serum 1.78 mg/dL (0.70-1.30); EST Glomerular Filtration Rate 41 mL/min (>60); Est Glom Filt Rate - Afr Amer 49 mL/min (>60); Glucose 110 mg/dL (74-106); PSA,Total - Annual Screen 4.63 ng/mL (0.00-4.00); Potassium 4.2 mmol/L (3.5-5.1); Protein, Total 7.4 g/dL (6.4-8.2); Sodium Level 140 mmol/L (136-145); Thyroid Stim Hormone (TSH) 0.71 uIU/mL (0.358-3.74)
[2018-04-28 11:58] LABS: Hep C Antibodies <0.1 s/co ratio (0.0-0.9)
== END ==
PROVIDERS: Visit Provider Family Medicine Geriatric Medicine
DX: E55.9 Vitamin D deficiency, unspecified (principal); I10 Essential (primary) hypertension; Z12.5 Encounter for screening for malignant neoplasm of prostate; Z13.89 Encounter for screening for other disorder
CPT/HCPCS: 36415; 80053; 82306; 84153; 84443; 85025; 86803; G0103

== ENCOUNTER → 2018-05-25 10:41 | Outpatient (CLI) | payer MEDICARE, SELFPAY ==
[2018-05-25 12:11] LABS: Amphetamine Urine VISTA NEGATIVE (<1000 ng/mL); Barbiturate Urine VISTA NEGATIVE (< 200 ng/mL); Benzodiazepine Urine VISTA NEGATIVE (< 200 ng/mL); Cocaine Urine VISTA NEGATIVE (< 300 ng/mL); Ecstacy Urine VISTA NEGATIVE (< 500 ng/mL); Methadone Urine VISTA NEGATIVE (< 300 ng/mL); PCP Urine VISTA NEGATIVE (< 25 ng/mL); THC Urine VISTA NEGATIVE (< 50 ng/mL); Vista UDS pH Range 6
== END ==
PROVIDERS: Family Provider Family Medicine Geriatric Medicine; PCP Family Medicine Geriatric Medicine; Visit Provider Anesthesiology Pain Medicine
DX: F11.20 Opioid dependence, uncomplicated (principal)
CPT/HCPCS: 80307

== ENCOUNTER 2018-07-15 01:22 | Observation (INO) | payer MEDICARE, SELFPAY ==
[2018-07-15] VITALS (8 sets, daily range): BP systolic 115–185; BP diastolic 65–106; PULSE 61–74; RESP 16–20; TEMP 36.4–36.8; O2SAT 92–97; BMI 23.5; BMI 22.6
--- NOTE | 2018-07-15 01:48 | ED.DCSUM_ITS ---
- ER Visit Summary Date of Service: 07/15/18 Chief Complaint: [] Blood from his ostomy bag History of Present Illness: The patient is a 67 M with recurrent lower GI bleed. He noticed some dark blood in his colostomy bag over last couple hours. His colostomy bag is full with stool mixed with dark blood. This is acute on chronic problem for the patient. He has had this 8 times in the past. He had a colostomy placed after he had a gangrenous hernia repaired with a partial colectomy. The patient was recently admitted earlier this year and had an upper GI and lower GI scope by showed no active bleeding. He did not require transfusion at that time. Usually gets transferred to [facility]. His last 2 visits is reported that they treat treated this conservatively. He does have a history of remote AAA 7.7 cm on recent CAT scan. Denies any significant abdominal pain. He does take [place] for chronic abdominal pain and has been out of patient recently Physical Examination: [] Vital signs reviewed General: Well-nourished well-developed Head: Normocephalic atraumatic Eyes: Pupils equal round and reactive to light extraocular movements intact ENT: TMs clear no hemotympanum no trauma Neck: Nontender full range of motion Cardiovascular: Regular rate rhythm no murmurs normal S1-S2 Respiratory: No distress clear to auscultation bilaterally chest nontender Abdomen: Soft nontender nondistended ostomy in the left of his abdomen. It is full with stool mixed with dark blood Back: Nontender no CVA tenderness Extremities: Nontender active range of motion ?4 extremities no trauma Skin: Normal color no trauma Neuro alert oriented cranial nerves II through XII intact normal strength sensation reflexes Test Results: [] Emergency Department Course and Treatment: [] Patient given IV fluids. Lab work obtained hemoglobin 12.6 which is stable for the patient. Creatinine 1.7 which is at his baseline. Coags negative. Patient had some mild persistent bleeding of approximately 100 cc in the department. Remained stable. Discussed with the hospitalist. He will be admitted for further evaluation and monitoring. This is acute on chronic phenomenon the patient. He is nontoxic. I do not think he needs transferred at this time. Discussed with the hospitalist Treatment Plan: [] Disposition: [] Impression: [] Recurrent GI bleed This note was generated with [employer] dictation software. It may contain incorrect words, spelling, and punctuation that were not noted in review of the chart prior to signing ED Disposition - Plan for ED Patient: Chief Complaint: GI Bleed Referrals: Carlos Zurita Chi, MD [Primary Care Provider] -
[2018-07-15 02:46] LABS: Absolute Lymphocyte Count 1.67 X10^3/ul (0.83-4.51); Absolute Neutrophil Count 4.7 X10^3/uL (2.0-7.7); Basophil# 0.06 X10^3/uL; Basophil% 0.6 % (0-1); Eosinophils% 17.1 % (0-5); Hematocrit 40.3 % (40-54); Hemoglobin 12.6 g/dl (13.0-16.5); Lymphocyte # 1.67 X10^3/ul (4.0); Lymphocyte % 17.9 % (19-41); Mean Corp Hgb Conc 31.3 g/gl (32-36); Mean Corpuscular Hgb 27.5 pg (27.0-32.0); Mean Platelet Vol. 9.6 fl (6.2-12.0); Monocyte# 1.26 X10^3/uL; Monocyte% 13.5 % (0-10); Neutrophil # 4.73 X10^3/uL (2.7-7.7); Neutrophil % 50.8 % (47-70); POSITIVE COUNT NO; POSITIVE DIFFERENTIAL NO; POSITIVE MORPHOLOGY NO; Platelet Count 201 K/mm3 (150-450); RBC Distribution Width CV 16.9 % (11.6-14.6); Red Blood Count 4.58 M/mm3 (4.6-6.2); White Blood Count 9.3 K/mm3 (4.4-11.0)
[2018-07-15] MEDS: Morphine 2 MG/ML Syringe IV (02:48)
[2018-07-15 02:56] LABS: Prothrombin Time (Protime)PT. 12.7 SECONDS (11.7-14.9)
[2018-07-15 02:57] LABS: Partial Thromboplast Time 28.1 Seconds (24.1-36.2)
[2018-07-15 03:01] LABS: Anion Gap 9 (5-15); BUN 30 mg/dL (7-18); BUN/Creat Ratio 17.4 RATIO (10-20); Calcium,Total 8.1 mg/dL (8.5-10.1); Chloride 110 mmol/L (98-107); Creatinine, Serum 1.72 mg/dL (0.70-1.30); EST Glomerular Filtration Rate 42 mL/min (>60); Est Glom Filt Rate - Afr Amer 51 mL/min (>60); Glucose 88 mg/dL (74-106); Potassium 4.4 mmol/L (3.5-5.1); Sodium Level 142 mmol/L (136-145)
--- NOTE | 2018-07-15 03:14 | PCM.HP.STD ---
Problem List (1) GI bleed Status: Acute Qualifiers: GI bleed type/associated pathology: unspecified gastrointestinal hemorrhage type Qualified Code(s): K92.2 - Gastrointestinal hemorrhage, unspecified (2) Chronic back pain Status: Chronic Qualifiers: Back pain location: back pain in unspecified location (3) AAA (abdominal aortic aneurysm) Status: Chronic Qualifiers: Presence of rupture: without rupture Comment: 6.2 cm (4) Hypertension Status: Chronic Qualifiers: Hypertension type: essential hypertension Qualified Code(s): I10 - Essential (primary) hypertension (5) COPD (chronic obstructive pulmonary disease) Status: Chronic Qualifiers: COPD type: unspecified COPD Qualified Code(s): J44.9 - Chronic obstructive pulmonary disease, unspecified Comment: mild (6) CAD (coronary artery disease) Status: Chronic Qualifiers: Coronary Disease-Associated Artery/Lesion type: unspecified vessel or lesion type [place] vs. transplanted heart: unspecified whether [place] or transplanted heart Associated angina: angina presence unspecified Qualified Code(s): I25.10 - Atherosclerotic heart disease of [place] coronary artery without angina pectoris Comment: left main RCA LAD referred for CABG (7) CKD (chronic kidney disease) stage 3, GFR 30-59 ml/min Status: Chronic (8) BPH (benign prostatic hyperplasia) Status: Chronic Qualifiers: Lower urinary tract symptom presence: unspecified whether lower urinary tract symptoms present Qualified Code(s): N40.0 - Benign prostatic hyperplasia without lower urinary tract symptoms (9) Atherosclerotic peripheral vascular disease Status: Chronic (10) Anemia Status: Chronic Qualifiers: Anemia type: unspecified type Qualified Code(s): D64.9 - Anemia, unspecified (11) Hyperlipidemia Status: Chronic Qualifiers: Hyperlipidemia type: pure hypercholesterolemia Qualified Code(s): E78.00 - Pure hypercholesterolemia, unspecified; E78.0 - Pure hypercholesterolemia (12) Congestive heart failure Status: Chronic Qualifiers: Heart failure type: systolic Heart failure chronicity: unspecified Qualified Code(s): I50.20 - Unspecified systolic (congestive) heart failure History of Present Illness Date of Admission: 07/15/18 Chief Complaint: BRB w/ colostomy, History recurrent GI bleed The patient is a 67 y/o M w/ PMHx: BPH, Chronic COPD, CKD stage III (baseline Cr 1.5-2.3), Tobacco use Hx, HTN, HLD, History of Infrarenal AAA 7.7 cm last 01/2018 evaluation, Chronic Back Pain, ? Hx DVT previously on coumadin, History of Ischemic Colitis s/p colostomy 01/2017, CAD, Systolic CHF, Fe Deficiency Anemia/AOCD (baseline Hgb 11-12 range 2017, prior 8-9 2016) who has had serial presentations to the [facility] secondary to complaint of onset bright red blood in his ostomy bag and around his ostomy w/ serial endoscopies which have been unremarkable, most recent admission 01/2018 w/ EGD and colonoscopy with Bx demonstrating mild gastritis and mild esophagitis who now presents to the [facility] ED on 07/15/18 with similar history to prior presentations w/ onset of bright red blood ~ 2 hours prior to ED presentation, noted mixed w/ his stool. He notes he has been out of his norco x 20 days and has chronic abdominal pain. He is in pain management. In the ED work-up included T 98.2, heart rate 74, BP 164/105, respiratory rate 18, 96% on room air, CBC with WBC 9.3, heme globin 12.6, platelet 201 without market shift, unremarkable coags, BMP with chloride 110, BUN/creatinine 30/1.72. In the ED patient administered NS, morphine. Past Medical History Past Medical History (Chronic Problems): Chronic Problems History of colostomy (Chronic) History of obstructed inguinal hernia status post colostomy in January 2017 Colon polyp (Chronic) Chronic back pain (Chronic) AAA (abdominal aortic aneurysm) (Chronic) 6.2 cm Hypertension (Chronic) COPD (chronic obstructive pulmonary disease) (Chronic) mild CAD (coronary artery disease) (Chronic) left main RCA LAD referred for CABG CKD (chronic kidney disease) stage 3, GFR 30-59 ml/min (Chronic) BPH (benign prostatic hyperplasia) (Chronic) Tenuous home situation (Chronic) Atherosclerotic peripheral vascular disease (Chronic) Anemia (Chronic) Hyperlipidemia (Chronic) Congestive heart failure (Chronic) Allergies ciprofloxacin [From Cipro] Allergy (Verified 07/15/18 01:27) Unknown Penicillins [PCN] Allergy (Verified 07/15/18 01:27) Unknown Iodinated Contrast- Oral and IV Dye [CT] Adverse Reaction (Verified 07/15/18 01:27) Rash Home Medications: Ambulatory Orders Medication Instructions Recorded Atorvastatin Calcium [Lipitor] 80 mg PO DAILY 01/05/18 Hydrocodone Bitart/Apap 5-325 1 tablet PO Q4H PRN PRN 01/05/18 [[place] 5/325] Isosorbide Mononitrate [Isosorbide 30 mg PO DAILY 01/05/18 Mononitrate ER] Pantoprazole Sodium 40 mg PO DAILY 01/05/18 Tamsulosin HCl [Flomax] 0.8 mg PO QHS 01/05/18 Carvedilol [Coreg (Beta [place])] 25 mg PO BID 01/25/18 Dicyclomine HCl [Bentyl] 10 mg PO BREAKFAST 01/25/18 Dicyclomine HCl [Bentyl] 10 mg PO QHS 01/25/18 Polyethylene Glycol 3350 [Miralax] 17 gm PO BID PRN 02/15/18 Senna/Docusate Sodium [Senokot-S] 1 tablet PO BID 02/15/18 Amlodipine [Norvasc] 5 mg PO QHS tablet 02/16/18 Surgical History: - - CABG, Hemicolectomy w/ Colostomy, Appendectomy. Psychiatric History: No pertinent psych hx Lives: Alone Smoking Status: Former smoker Tobacco Use: Non-smoker Alcohol: None Drugs: None - *Family History Maternal History Items: No pertinent history Paternal History Items: No pertinent history Review of Systems Constitutional: Reports: Fatigue. Denies: Anorexia, Chills, Fever, Malaise, Weakness, Weight Change HEENT: Denies: Head Aches, Sinus Congestion, Sinus Drainage Cardiovascular: Denies: Chest Pain, Palpitations Respiratory: Denies: Cough, Shortness of breath at rest, Sputum production Gastrointestinal: Reports: Abdominal Pain, - - BRB in colostomy.. Denies: Nausea, Vomiting Genitourinary: Denies: Dysuria Musculoskeletal: Reports: Back Pain. Denies: Joint Pain, Joint Tenderness Skin: Denies: Rash, Wounds Neurological: Denies: Numbness, Tingling, Focal weakness Psychiatric: Denies: Anxiety, Depression, Homicidal Ideations, Suicidal Ideations Hematologic/ Lymphatic: Reports: Anemia. Denies: Easy Bruising, Easy Bleeding VTE Information - Inpt Only VTE Present on Admission: No VTE Mechan Device Prophylaxis: SCD's VTE Pharm Prophylaxis ordered?: No Reason prophylaxis not ordered:: Medical Contraindication Patient Problems: Active and Suspected Problems GI bleed (Acute) Subjective: Seated upright in the ED bed, NAD, requesting if he will be able to be discharged by noon. Objective: Physical Examination: General: awake, alert, oriented x 3 and cooperative, seated upright in the ED bed in no apparent distress. Skin: normal color, turgor, no icterus, cyanosis. HEENT: AT/NC, EOMI, PERRLA, MMM, no carotid bruits or JVD noted. Lungs: CTA bilaterally, moderate effort, mild decrease BL bases, no rales, ronchi or wheezing. Heart: Regular rate and rhythm; no gallop, rub audible. Abdomen: soft, generalized TTP, stable baseline chronic pain examination, BRB in colostomy, recent change, mildly distended, mildly hyperactive BS, difficult to assess HSM secondary to chronic pain. Extremities: no cyanosis, clubbing, or edema. Neurological: patient awake, alert, oriented x 3; cognitive function intact; pupils equally reactive to light and accomodation; cranial nerves II-XII grossly normal, moving all 4 extremities, no focal deficits, strength moderately globally decreased. Psychiatric: affect appears fatigued, no acute evidence of depressive or anxiety feelings. - Physical Exam Vital Signs Temp Pulse Resp BP Pulse Ox 98.2 F 74 18 164/105 H 96 07/15/18 01:23 07/15/18 01:23 07/15/18 01:23 07/15/18 01:23 07/15/18 01:23 Oxygen Delivery Method Room Air Weight: 150 lb Body Mass Index (BMI) 23.5 Laboratory Tests Past 24 Hrs 07/15/18 07/15/18 07/15/18 02:40 02:40 02:42 WBC 9.3 RBC 4.58 L Hgb 12.6 L Hct 40.3 MCV 88.0 MCH 27.5 MCHC 31.3 L RDW 16.9 H RDW Differential 54.0 H Plt Count 201 MPV 9.6 Immature Gran % (Auto) 0.100 Neut % (Auto) 50.8 Lymph % (Auto) 17.9 L [place] % (Auto) 13.5 H Eos % (Auto) 17.1 H Baso % (Auto) 0.6 Absolute Neuts (auto) 4.7 Absolute Lymphs (auto) 1.67 Total Counted Not Reportable PT 12.7 INR 1.0 APTT 28.1 Sodium 142 Potassium 4.4 Chloride 110 H Carbon Dioxide 23.0 Anion Gap 9 BUN 30 H Creatinine 1.72 H Estim Creat Clear Calc 39.50 Est GFR (MDRD) Af Amer 51 L Est GFR (MDRD) Non-Af 42 L BUN/Creatinine Ratio 17.4 Glucose 88 Calcium 8.1 L Assessment/Plan All Active Problems GI bleed (Acute) Lower GI bleed (Acute) Acute cystitis (Resolved) The patient is a 67 y/o M w/ PMHx: BPH, Chronic COPD, CKD stage III, Tobacco use Hx, HTN, HLD, History of Infrarenal AAA 7.7 cm last 01/2018 evaluation, Chronic Back Pain, ? Hx DVT previously on coumadin, History of Ischemic Colitis s/p colostomy 01/2017, CAD, Systolic CHF, Fe Deficiency Anemia/AOCD who has had serial presentations to the [facility] secondary to complaint of onset bright red blood in his ostomy bag and around his ostomy w/ serial endoscopies which have been unremarkable, most recent admission 01/2018 w/ EGD and colonoscopy with Bx demonstrating mild gastritis and mild esophagitis who now presents to the [facility] ED on 07/15/18 with similar history to prior presentations w/ onset of bright red blood ~ 2 hours prior to ED presentation, noted mixed w/ his stool. (1) Chronic Abdominal pain w/ Recurrent blood in colostomy bag w/ Chronic Fe Deficiency Anemia/AOCD: Noted upon ED presentation, Hgb stable, 12.6, baseline noted 2017 11-12 range, asymptomatic, VSS. Will admit to MS, defer aggressive fluids given CHF history, not on anticoagulation, Wound/burlesque dancer consultation, Dr. Busch consultation w/ recent 01/2018 endoscopies w/ gastritis and esophagitis, unclear if would plan re-scope, maintain on IV PPI, allow clears only. (2) History of Ischemic Colitis: Complicates presentation #1, s/p colectomy and colostomy as noted, burlesque dancer consulted. (3) CKD stage III: Admission BUN/Cr 30/1.72, baseline creatinine range 1.5-2.3 mg/dL, stable, repeat BMP in AM. (4) CAD: Hold ASA given current presentation, add back once bleeding subsided, continue home coreg, statin regimen. (5) Hypertension: Continue home regimen including Coreg, isosorbide. (6) Hyperlipidemia: Continue home statin regimen. (7) Hx DVT: Previously on coumadin, no longer, defer chemoprophylaxis given acute presentation. (8) Hx AAA: 05/17/18 CT A/P w/ large fusiform abdominal aortic aneurysm w/ greatest transverse dimension is 7.7 cm. Follows w/ [facility]. (9) Chronic COPD w/ Former Tobacco use: ATC duonebs, PRN albuterol, HOB, IS parameters. (10) BPH: Continue home Flomax regimen. (11) ? Systolic CHF: Defer IVF given stable appearing, if needed may gently hydrate, holding ASA, continue home BB, statin, not on ACEI/ARB. (12) DVT Prophylaxis: SCDs, holding chemoprophylaxis given acute presentation. Code Visit OBSV E&M: 39575 Initial observation care L3
--- NOTE | 2018-07-15 03:18 | HP.PCM_ITS ---
Problem List (1) GI bleed Status: Acute Qualifiers: GI bleed type/associated pathology: unspecified gastrointestinal hemorrhage type Qualified Code(s): K92.2 - Gastrointestinal hemorrhage, unspecified (2) Chronic back pain Status: Chronic Qualifiers: Back pain location: back pain in unspecified location (3) AAA (abdominal aortic aneurysm) Status: Chronic Qualifiers: Presence of rupture: without rupture Comment: 6.2 cm (4) Hypertension Status: Chronic Qualifiers: Hypertension type: essential hypertension Qualified Code(s): I10 - Essential (primary) hypertension (5) COPD (chronic obstructive pulmonary disease) Status: Chronic Qualifiers: COPD type: unspecified COPD Qualified Code(s): J44.9 - Chronic obstructive pulmonary disease, unspecified Comment: mild (6) CAD (coronary artery disease) Status: Chronic Qualifiers: Coronary Disease-Associated Artery/Lesion type: unspecified vessel or lesion type [place] vs. transplanted heart: unspecified whether [place] or transplanted heart Associated angina: angina presence unspecified Qualified Code(s): I25.10 - Atherosclerotic heart disease of [place] coronary artery without angina pectoris Comment: left main RCA LAD referred for CABG (7) CKD (chronic kidney disease) stage 3, GFR 30-59 ml/min Status: Chronic (8) BPH (benign prostatic hyperplasia) Status: Chronic Qualifiers: Lower urinary tract symptom presence: unspecified whether lower urinary tract symptoms present Qualified Code(s): N40.0 - Benign prostatic hyperplasia without lower urinary tract symptoms (9) Atherosclerotic peripheral vascular disease Status: Chronic (10) Anemia Status: Chronic Qualifiers: Anemia type: unspecified type Qualified Code(s): D64.9 - Anemia, unspecified (11) Hyperlipidemia Status: Chronic Qualifiers: Hyperlipidemia type: pure hypercholesterolemia Qualified Code(s): E78.00 - Pure hypercholesterolemia, unspecified; E78.0 - Pure hypercholesterolemia (12) Congestive heart failure Status: Chronic Qualifiers: Heart failure type: systolic Heart failure chronicity: unspecified Qualified Code(s): I50.20 - Unspecified systolic (congestive) heart failure History of Present Illness Date of Admission: 07/15/18 Chief Complaint: BRB w/ colostomy, History recurrent GI bleed The patient is a 67 y/o M w/ PMHx: BPH, Chronic COPD, CKD stage III (baseline Cr 1.5-2.3), Tobacco use Hx, HTN, HLD, History of Infrarenal AAA 7.7 cm last 2017 evaluation, Chronic Back Pain, ? Hx DVT previously on coumadin, History of Ischemic Colitis s/p colostomy 01/2017, CAD, Systolic CHF, Fe Deficiency Anemia/ AOCD (baseline Hgb 11-12 range 2017, prior 8-9 2016) who has had serial presentations to the [facility] secondary to complaint of onset bright red blood in his ostomy bag and around his ostomy w/ serial endoscopies which have been unremarkable, most recent admission 01/2018 w/ EGD and colonoscopy with Bx demonstrating mild gastritis and mild esophagitis who now presents to the [facility] ED on 07/15/18 with similar history to prior presentations w/ onset of bright red blood ~ 2 hours prior to ED presentation, noted mixed w/ his stool. He notes he has been out of his norco x 20 days and has chronic abdominal pain. He is in pain management. In the ED work-up included T 98.2, heart rate 74, BP 164/ 105, respiratory rate 18, 96% on room air, CBC with WBC 9.3, heme globin 12.6, platelet 201 without market shift, unremarkable coags, BMP with chloride 110, BUN/creatinine 30/1.72. In the ED patient administered NS, morphine. Past Medical History Past Medical History (Chronic Problems): Chronic Problems History of colostomy (Chronic) History of obstructed inguinal hernia status post colostomy in January 2017 Colon polyp (Chronic) Chronic back pain (Chronic) AAA (abdominal aortic aneurysm) (Chronic) 6.2 cm Hypertension (Chronic) COPD (chronic obstructive pulmonary disease) (Chronic) mild CAD (coronary artery disease) (Chronic) left main RCA LAD referred for CABG CKD (chronic kidney disease) stage 3, GFR 30-59 ml/min (Chronic) BPH (benign prostatic hyperplasia) (Chronic) Tenuous home situation (Chronic) Atherosclerotic peripheral vascular disease (Chronic) Anemia (Chronic) Hyperlipidemia (Chronic) Congestive heart failure (Chronic) Allergies ciprofloxacin [From Cipro] Allergy (Verified 07/15/18 01:27) Unknown Penicillins [PCN] Allergy (Verified 07/15/18 01:27) Unknown Iodinated Contrast- Oral and IV Dye [CT] Adverse Reaction (Verified 07/15/18 01: 27) Rash Home Medications: Ambulatory Orders Medication Instructions Recorded Atorvastatin Calcium [Lipitor] 80 mg PO DAILY 01/05/18 Hydrocodone Bitart/Apap 5-325 1 tablet PO Q4H PRN PRN 01/05/18 [[place] 5/325] Isosorbide Mononitrate [Isosorbide 30 mg PO DAILY 01/05/18 Mononitrate ER] Pantoprazole Sodium 40 mg PO DAILY 01/05/18 Tamsulosin HCl [Flomax] 0.8 mg PO QHS 01/05/18 Carvedilol [Coreg ([place])] 25 mg PO BID 01/25/18 Dicyclomine HCl [Bentyl] 10 mg PO BREAKFAST 01/25/18 Dicyclomine HCl [Bentyl] 10 mg PO QHS 01/25/18 Polyethylene Glycol 3350 [Miralax] 17 gm PO BID PRN 02/15/18 Senna/Docusate Sodium [Senokot-S] 1 tablet PO BID 02/15/18 Amlodipine [Norvasc] 5 mg PO QHS tablet 02/16/18 Surgical History: - - CABG, Hemicolectomy w/ Colostomy, Appendectomy. Psychiatric History: No pertinent psych hx Lives: Alone Smoking Status: Former smoker Tobacco Use: Non-smoker Alcohol: None Drugs: None - *Family History Maternal History Items: No pertinent history Paternal History Items: No pertinent history Review of Systems Constitutional: Reports: Fatigue. Denies: Anorexia, Chills, Fever, Malaise, Weakness, Weight Change HEENT: Denies: Head Aches, Sinus Congestion, Sinus Drainage Cardiovascular: Denies: Chest Pain, Palpitations Respiratory: Denies: Cough, Shortness of breath at rest, Sputum production Gastrointestinal: Reports: Abdominal Pain, - - BRB in colostomy.. Denies: Nausea, Vomiting Genitourinary: Denies: Dysuria Musculoskeletal: Reports: Back Pain. Denies: Joint Pain, Joint Tenderness Skin: Denies: Rash, Wounds Neurological: Denies: Numbness, Tingling, Focal weakness Psychiatric: Denies: Anxiety, Depression, Homicidal Ideations, Suicidal Ideations Hematologic/ Lymphatic: Reports: Anemia. Denies: Easy Bruising, Easy Bleeding VTE Information - Inpt Only VTE Present on Admission: No VTE Mechan Device Prophylaxis: SCD's VTE Pharm Prophylaxis ordered?: No Reason prophylaxis not ordered:: Medical Contraindication Patient Problems: Active and Suspected Problems GI bleed (Acute) Subjective: Seated upright in the ED bed, NAD, requesting if he will be able to be discharged by noon. Objective: Physical Examination: General: awake, alert, oriented x 3 and cooperative, seated upright in the ED bed in no apparent distress. Skin: normal color, turgor, no icterus, cyanosis. HEENT: AT/NC, EOMI, PERRLA, MMM, no carotid bruits or JVD noted. Lungs: CTA bilaterally, moderate effort, mild decrease BL bases, no rales, ronchi or wheezing. Heart: Regular rate and rhythm; no gallop, rub audible. Abdomen: soft, generalized TTP, stable baseline chronic pain examination, BRB in colostomy, recent change, mildly distended, mildly hyperactive BS, difficult to assess HSM secondary to chronic pain. Extremities: no cyanosis, clubbing, or edema. Neurological: patient awake, alert, oriented x 3; cognitive function intact; pupils equally reactive to light and accomodation; cranial nerves II-XII grossly normal, moving all 4 extremities, no focal deficits, strength moderately globally decreased. Psychiatric: affect appears fatigued, no acute evidence of depressive or anxiety feelings. - Physical Exam Vital Signs Temp Pulse Resp BP Pulse Ox 98.2 F 74 18 164/105 H 96 07/15/18 01:23 07/15/18 01:23 07/15/18 01:23 07/15/18 01:23 07/15/18 01:23 Oxygen Delivery Method Room Air Weight: 150 lb Body Mass Index (BMI) 23.5 Laboratory Tests Past 24 Hrs 07/15/18 07/15/18 07/15/18 02:40 02:40 02:42 WBC 9.3 RBC 4.58 L Hgb 12.6 L Hct 40.3 MCV 88.0 MCH 27.5 MCHC 31.3 L RDW 16.9 H RDW Differential 54.0 H Plt Count 201 MPV 9.6 Immature Gran % (Auto) 0.100 Neut % (Auto) 50.8 Lymph % (Auto) 17.9 L [place] % (Auto) 13.5 H Eos % (Auto) 17.1 H Baso % (Auto) 0.6 Absolute Neuts (auto) 4.7 Absolute Lymphs (auto) 1.67 Total Counted Not Reportable PT 12.7 INR 1.0 APTT 28.1 Sodium 142 Potassium 4.4 Chloride 110 H Carbon Dioxide 23.0 Anion Gap 9 BUN 30 H Creatinine 1.72 H Estim Creat Clear Calc 39.50 Est GFR (MDRD) Af Amer 51 L Est GFR (MDRD) Non-Af 42 L BUN/Creatinine Ratio 17.4 Glucose 88 Calcium 8.1 L Assessment/Plan All Active Problems GI bleed (Acute) Lower GI bleed (Acute) Acute cystitis (Resolved) The patient is a 67 y/o M w/ PMHx: BPH, Chronic COPD, CKD stage III, Tobacco use Hx, HTN, HLD, History of Infrarenal AAA 7.7 cm last 01/2018 evaluation, Chronic Back Pain, ? Hx DVT previously on coumadin, History of Ischemic Colitis s/p colostomy 01/2017, CAD, Systolic CHF, Fe Deficiency Anemia/AOCD who has had serial presentations to the [facility] secondary to complaint of onset bright red blood in his ostomy bag and around his ostomy w/ serial endoscopies which have been unremarkable, most recent admission 01/2018 w/ EGD and colonoscopy with Bx demonstrating mild gastritis and mild esophagitis who now presents to the [facility] ED on 07/15/18 with similar history to prior presentations w/ onset of bright red blood ~ 2 hours prior to ED presentation, noted mixed w/ his stool. (1) Chronic Abdominal pain w/ Recurrent blood in colostomy bag w/ Chronic Fe Deficiency Anemia/AOCD: Noted upon ED presentation, Hgb stable, 12.6, baseline noted 2017 11-12 range, asymptomatic, VSS. Will admit to MS, defer aggressive fluids given CHF history, not on anticoagulation, Wound/billet cutter consultation, Dr. Busch consultation w/ recent 01/2018 endoscopies w/ gastritis and esophagitis, unclear if would plan re-scope, maintain on IV PPI, allow clears only. (2) History of Ischemic Colitis: Complicates presentation #1, s/p colectomy and colostomy as noted, billet cutter consulted. (3) CKD stage III: Admission BUN/Cr 30/1.72, baseline creatinine range 1.5-2.3 mg/dL, stable, repeat BMP in AM. (4) CAD: Hold ASA given current presentation, add back once bleeding subsided, continue home coreg, statin regimen. (5) Hypertension: Continue home regimen including Coreg, isosorbide. (6) Hyperlipidemia: Continue home statin regimen. (7) Hx DVT: Previously on coumadin, no longer, defer chemoprophylaxis given acute presentation. (8) Hx AAA: 05/17/18 CT A/P w/ large fusiform abdominal aortic aneurysm w/ greatest transverse dimension is 7.7 cm. Follows w/ [facility]. (9) Chronic COPD w/ Former Tobacco use: ATC duonebs, PRN albuterol, HOB, IS parameters. (10) BPH: Continue home Flomax regimen. (11) ? Systolic CHF: Defer IVF given stable appearing, if needed may gently hydrate, holding ASA, continue home BB, statin, not on ACEI/ARB. (12) DVT Prophylaxis: SCDs, holding chemoprophylaxis given acute presentation. Code Visit OBSV E&M: 72120 Initial observation care L3
[2018-07-15] MEDS: Tamsulosin HCl 0.4 MG Capsule 0.8 MG PO (04:51)
[2018-07-15] MEDS: 0.9% Normal Saline 1,000 ML 75 ML IV (04:53)
[2018-07-15] MEDS: HYDROcodone Bitartrate/Apap 5/325 Tablet PO ×2 (04:59→09:31)
[2018-07-15] MEDS: Carvedilol 25 MG Tablet PO (05:00)
[2018-07-15 05:01] LABS: Magnesium 2.3 mg/dL (1.6-2.6)
[2018-07-15 07:02] LABS: Hematocrit 35.6 % (40-54)
--- NOTE | 2018-07-15 07:23 | PN_ITS ---
Progress Note 67-year-old male with past medical history of multiple comorbidities, including previous GI bleed, status post colonoscopy who comes in with complaints of dark blood in his colostomy bag. He was admitted to a telemetry bed overnight. His vitals showed elevated blood pressure with blood pressure 185/103. His hemoglobin remained stable at 12.6, 11.0, and 10.5. Patient continued to have continued that blood in his colostomy bag. General surgery was consulted and upon further discussion recommended transfer to a tertiary facility as we are unsure of the source of his bleeding, and the OR was not open for surgery. Called [facility] transfer line patient was accepted. Gave labetalol 10 mg IV ?1 for elevated blood pressure I spent 40 minutes coordinating the care with the general surgeon, transferring the patient to [facility] for further management. Code Visit Procedures: 02201 Prolonged Physician INPT
[2018-07-15 07:29] LABS: Anion Gap 7 (5-15); BUN 26 mg/dL (7-18); BUN/Creat Ratio 17.6 RATIO (10-20); Calcium,Total 8.2 mg/dL (8.5-10.1); Chloride 111 mmol/L (98-107); Creatinine, Serum 1.48 mg/dL (0.70-1.30); EST Glomerular Filtration Rate 51 mL/min (>60); Est Glom Filt Rate - Afr Amer 61 mL/min (>60); Estimated Creatinine Clearance 45.49 ml/min; Glucose 96 mg/dL (74-106); Potassium 4.2 mmol/L (3.5-5.1); Sodium Level 144 mmol/L (136-145)
[2018-07-15] MEDS: Dicyclomine 10 MG Capsule PO (09:24)
--- NOTE | 2018-07-15 10:04 | NURSING ---
DR PRATER AND DR SOLORIO IN ROOM AND TALKING WITH PT ABOUT TRANSFER OUT TO ANOTHER FACILITY- PT IS AGREABLE TO TRANSFER TO [facility].
--- NOTE | 2018-07-15 10:12 | CON.PCM_ITS ---
- Consult Date of Consult: 07/15/18 - Reason for Consult Reason for Consultation: GI bleeding History of Present Illness: The patient is a known to our hospital for episodes of GI bleeding, last evaluated in January of this year. 67 year old WM who presents with blood in his stools. He has had episodes of this in the past, but this is a new onset, occurring just yesterday. Evaluated in the ED and admitted to the hospitalist service. Hgb upon admission was 12.6, this morning it was 11. The patient is not on any anticoagulation. He has multiple medical problems. He was to undergo AAA repair after cardiac surgery, but patient did not want cardiac surgery. His last measured AAA was 7.7. In January of this year, he had undergo upper and lower endoscopy by Dr. Busch. Findings of chronic superficial gastritis, mild distal esophagitis, biopsy of cecum for concern for ischemia proved negative, no other abnormalities noted. Other significant medical conditions include hypertension, hyperlipidemia, COPD , chronic kidney disease. PAST MEDICAL HISTORY: History of colostomy (Chronic) History of obstructed inguinal hernia status post colostomy in January 2017 Colon polyp (Chronic) Chronic back pain (Chronic) AAA (abdominal aortic aneurysm) (Chronic) 7.7cm Hypertension (Chronic) COPD (chronic obstructive pulmonary disease) (Chronic) mild CAD (coronary artery disease) (Chronic), known RCA, LAD CKD (chronic kidney disease) stage 3, GFR 30-59 ml/min (Chronic) BPH (benign prostatic hyperplasia) (Chronic) Tenuous home situation (Chronic) Atherosclerotic peripheral vascular disease (Chronic) Anemia (Chronic) Hyperlipidemia (Chronic) Congestive heart failure (Chronic) Allergies ciprofloxacin [From Cipro] Allergy (Verified 01/04/18 23:40) Penicillins [PCN] Allergy (Verified 02/15/18 03:35) Iodinated Contrast- Oral and IV Dye [CT] Adverse Reaction (Verified 02/15/18 03: 35) MEDICATIONS: Atorvastatin Calcium [Lipitor] 80 mg PO DAILY 01/05/18 Hydrocodone Bitart/Apap 5-325 1 tablet PO Q4H PRN PRN 01/05/18 [[place] 5MG-325MG] Isosorbide Mononitrate [Isosorbide 30 mg PO DAILY 01/05/18 Mononitrate ER] Pantoprazole Sodium 40 mg PO DAILY 01/05/18 Tamsulosin HCl [Flomax] 0.8 mg PO QHS 01/05/18 Amlodipine Besylate [Norvasc] 2.5 mg PO QHS 01/25/18 Carvedilol [Coreg (Beta Chase)] 25 mg PO BID 01/25/18 Dicyclomine HCl [Bentyl] 10 mg PO BREAKFAST 01/25/18 Dicyclomine HCl [Bentyl] 10 mg PO QHS 01/25/18 Polyethylene Glycol 3350 [Miralax] 17 gm PO BID 02/15/18 Senna/Docusate Sodium [Senokot-S, 1 tablet PO BID 02/15/18 Kerri-Colace] Surgical History: appendectomy, colectomy - Sigmoid hemicolectomy with colostomy., coronary bypass surgery Psychiatric History: No pertinent psych hx Smoking Status: Former smoker Tobacco Use: Cigarettes Review of Systems Constitutional: Reports: Anorexia. Denies: Fever Eyes: Denies: Vision Change Cardiovascular: Denies: Chest Pain, Chest Pressure Respiratory: Reports: - - COPD Gastrointestinal: Reports: Abdominal Pain, Hematochezia, Nausea, Vomiting. Denies: Diarrhea, Hematemesis Skin: Denies: Skin Changes Hematologic/ Lymphatic: not on any anticoagulation, frequent episodes of GI bleeding PHYSICAL EXAMINATION: Temp 98.2F HR 65 BP 185/103 General: Alert, Oriented x3, Cooperative, No apparent distress HEENT: Atraumatic, Normocephalic Oral: Moist Mucosa Neck: Supple Lungs: Normal air movement Cardiovascular: Regular rate, Regular Rhythm Abdomen: Bowel Sounds Present, Soft, Tender - +mild diffuse TTP lower abdomen without rebound or guarding. colostomy present - Obvious blood in stoma bag Extremities: No clubbing, No cyanosis Psych/Mental Status: Normal Affect Impression: active lower GI bleed aneurysm CAD, patient didn't want CABG surgery chronic lower abdominal pain colostomy s/p colon resection for ischemic colitis Plan: I have discussed with patient and Dr. Triplett, the hospitalist taking care of him. At present, the OR/endo is shut down due to boiler changes, thus there is suboptimal care of the patient at this facility at present. I am concerned given that I can literally visualize gross bleeding from the colostomy and though the hemoglobin has not dropped considerably, I suspect that this may present itself eventually. The patient has no evidence of coagulopathy. The patient has a large aneurysm, and his blood pressure is elevated, this could represent a herald bleed. I have recommended transfer to a larger medical facility. The patient agrees.
--- NOTE | 2018-07-15 10:13 | DCINST_ITS ---
- Discharge Diagnoses Current Active Problems: Current Active and Chronic Problems GI bleed (Acute) Reason(s) for Visit for Discharge Instructions: Lower GI bleed You will use the following diet at home:: Calorie/Carbohydrate Controlled ( specify 1200, 1400, etc) Your food should be the consistency of: Regular Your liquids should be the consistency of: Regular/Thin Discharge Activity: Return to Normal Activity Allergies/Adverse Reactions: Allergies ciprofloxacin [From Cipro] Allergy (Verified 07/15/18 01:27) Unknown Penicillins [PCN] Allergy (Verified 07/15/18 01:27) Unknown Iodinated Contrast- Oral and IV Dye [CT] Adverse Reaction (Verified 07/15/18 01: 27) Rash Medications to take at Discharge Atorvastatin Calcium [Lipitor] 80 mg PO DAILY 01/05/18 Hydrocodone Bitart/Apap 5-325 [[place] 5/325] 1 tablet PO Q4H PRN PRN 01/05/18 Isosorbide Mononitrate [Isosorbide Mononitrate ER] 30 mg PO DAILY 01/05/18 Pantoprazole Sodium 40 mg PO DAILY 01/05/18 Tamsulosin HCl [Flomax] 0.8 mg PO QHS 01/05/18 Carvedilol [Coreg (Beta Chase)] 25 mg PO BID 01/25/18 Dicyclomine HCl [Bentyl] 10 mg PO QHS 01/25/18 Polyethylene Glycol 3350 [Miralax] 17 gm PO BID PRN 02/15/18 Senna/Docusate Sodium [Senokot-S] 1 tablet PO BID 02/15/18 Amlodipine [Norvasc] 5 mg PO QHS tablet 02/16/18 Primary Care Physician: Carlos Zurita Chi, MD [Primary Care Provider] - Please follow up with your Primary Care Physician in: within 2 weeks Test Results: Test results from this visit will be discussed in further detail at your follow- up appointment, if applicable. Proposed Discharge Date: 07/15/18
--- NOTE | 2018-07-15 10:14 | DS.PCM_ITS ---
Discharge Date and Diagnosis - Problem List Patient Problems: Active and Suspected Problems GI bleed (Acute) Date of Admission: 07/15/18 Date of Discharge: 07/15/18 - Primary Discharge Diagnosis Active and Suspected Problems GI bleed (Acute) Hypertensive urgency Acute blood loss anemia - Secondary Discharge Diagnosis Chronic Problems History of colostomy (Chronic) History of obstructed inguinal hernia status post colostomy in January 2017 Colon polyp (Chronic) Chronic back pain (Chronic) AAA (abdominal aortic aneurysm) (Chronic) 6.2 cm Hypertension (Chronic) COPD (chronic obstructive pulmonary disease) (Chronic) mild CAD (coronary artery disease) (Chronic) left main RCA LAD referred for CABG CKD (chronic kidney disease) stage 3, GFR 30-59 ml/min (Chronic) BPH (benign prostatic hyperplasia) (Chronic) Tenuous home situation (Chronic) Atherosclerotic peripheral vascular disease (Chronic) Anemia (Chronic) Hyperlipidemia (Chronic) Congestive heart failure (Chronic) Hospital Course and Treatment Consultations 07/15/18 04:28 Consult: Onc/Wound/lamp shade sewer Routine Comment: General surgery Operations: None Procedures: None Summary of Care Provided: The patient is a 67 year old M with multiple comorbidities including aortic aneurysm, 7.7 cm, hypertension, history of GI bleed, status post colonoscopy, comes in with complaints of dark stools in his colostomy bag. Patient was admitted to the telemetry bed, monitored overnight, his vitals remained stable. Blood pressure was elevated, giving IV labetalol ?1, hemoglobin remained stable with slight drop from 12.6-10.5. He was also on IV fluids. General surgery was consulted. Discussed extensively with general surgeon and patient, patient will be transferred to [facility] because of his high risk and possible involvement of his aneurysm as well as the OR was closed for surgery. He was accepted at [facility]. Discharge Diet: Low fat/ Low Cholesterol, 2000 mg Sodium Diet Discharge Activity: Return to Normal Activity Home Medications: Medications to take at Discharge Atorvastatin Calcium [Lipitor] 80 mg PO DAILY 01/05/18 Hydrocodone Bitart/Apap 5-325 [[place] 5/325] 1 tablet PO Q4H PRN PRN 01/05/18 Isosorbide Mononitrate [Isosorbide Mononitrate ER] 30 mg PO DAILY 01/05/18 Pantoprazole Sodium 40 mg PO DAILY 01/05/18 Tamsulosin HCl [Flomax] 0.8 mg PO QHS 01/05/18 Carvedilol [Coreg (Beta Chase)] 25 mg PO BID 01/25/18 Dicyclomine HCl [Bentyl] 10 mg PO QHS 01/25/18 Polyethylene Glycol 3350 [Miralax] 17 gm PO BID PRN 02/15/18 Senna/Docusate Sodium [Senokot-S] 1 tablet PO BID 02/15/18 Amlodipine [Norvasc] 5 mg PO QHS tablet 02/16/18 Primary Care Physician: Carlos Zurita Chi, MD [Primary Care Provider] - Please follow up with your Primary Care Physician in: within 2 weeks Disposition: Acute care Hospital Minutes spent on discharge:: 40 Patient Condition:: Stable Medical Necessity - Tobacco Use Smoking Status: Former smoker Tobacco Use: Non-smoker Meaningful Use Info Meaningful Use Diagnoses (Choose all that apply): None applicable Code Visit Inpatient E&M: 93039 Disch Hosp
[2018-07-15] MEDS: Isosorbide Mononitrate 30 MG Tablet PO (10:41)
[2018-07-15 12:19] LABS: Hematocrit 33.7 % (40-54); Hemoglobin 10.5 g/dl (13.0-16.5)
[2018-07-15] MEDS: Ipratropium/Albuterol Sulfate 3 ML AMPUL.NEB INHALATION (13:09)
== END 2018-07-15 13:30 | disposition short-term general hospital (02) ==
LOC: ED 03:13 → MS3 03:39
PROVIDERS: Admitting Provider Family Medicine; Emergency Provider Emergency Medicine; Family Provider Family Medicine Geriatric Medicine; PCP Family Medicine Geriatric Medicine; Visit Provider Internal Medicine
DX: K92.2 Gastrointestinal hemorrhage, unspecified (principal); D62 Acute posthemorrhagic anemia; I16.0 Hypertensive urgency; J44.9 Chronic obstructive pulmonary disease, unspecified; E78.5 Hyperlipidemia, unspecified; I13.0 Hypertensive heart and chronic kidney disease with heart failure and stage 1 through stage 4 chronic kidney disease, or unspecified chronic kidney disease; I50.22 Chronic systolic (congestive) heart failure; N18.3 Chronic kidney disease, stage 3 (moderate); N40.0 Benign prostatic hyperplasia without lower urinary tract symptoms; I25.10 Atherosclerotic heart disease of native coronary artery without angina pectoris; I71.4 Abdominal aortic aneurysm, without rupture; Z95.1 Presence of aortocoronary bypass graft; Z79.899 Other long term (current) drug therapy; Z93.3 Colostomy status; Z87.891 Personal history of nicotine dependence; G89.29 Other chronic pain; D63.8 Anemia in other chronic diseases classified elsewhere; I70.209 Unspecified atherosclerosis of native arteries of extremities, unspecified extremity
CPT/HCPCS: 36415; 80048; 83735; 85014; 85018; 85025; 85610; 85730; 94640; 96361; 96365; 96375; 99218; 99285; J7030; J7040; G0378

== ENCOUNTER → 2018-09-12 11:49 | Outpatient (CLI) | payer MEDICARE, SELFPAY ==
[2018-09-12 12:33] LABS: Absolute Lymphocyte Count 1.39 X10^3/ul (0.83-4.51); Absolute Neutrophil Count 3.7 X10^3/uL (2.0-7.7); Basophil# 0.03 X10^3/uL; Basophil% 0.4 % (0-1); Eosinophil# 0.99 X10^3/uL; Eosinophils% 14.5 % (0-5); Hematocrit 37.8 % (40-54); Hemoglobin 11.4 g/dl (13.0-16.5); Lymphocyte # 1.39 X10^3/ul (4.0); Lymphocyte % 20.4 % (19-41); Mean Corp Hgb Conc 30.2 g/gl (32-36); Mean Corpuscular Hgb 25.9 pg (27.0-32.0); Mean Corpuscular Volume 85.7 fL (80-94); Mean Platelet Vol. 11.2 fl (6.2-12.0); Monocyte# 0.72 X10^3/uL; Monocyte% 10.6 % (0-10); Neutrophil # 3.67 X10^3/uL (2.7-7.7); Platelet Count 246 K/mm3 (150-450); RBC Distribution Width CV 14.7 % (11.6-14.6); RBC Distribution Width SD 45.3 fl (35.1-43.9); Red Blood Count 4.41 M/mm3 (4.6-6.2); White Blood Count 6.8 K/mm3 (4.4-11.0)
[2018-09-12 12:41] LABS: POSITIVE COUNT NO; POSITIVE DIFFERENTIAL NO; POSITIVE MORPHOLOGY NO
[2018-09-12 12:54] LABS: Vitamin D,25 Hydroxy 28.1 ng/mL (29.95-100.01)
[2018-09-12 12:56] LABS: ALB/GLOB Ratio 0.9 RATIO (0.9-2.4); AST(SGOT) 16 U/L (15-37); Alanine Aminotransfer ALT/SGPT 22 U/L (16-61); Albumin, Serum 3.3 g/dL (3.2-5.0); Alkaline Phosphatase 144 U/L (45-117); Anion Gap 7 (5-15); BUN 23 mg/dL (7-18); BUN/Creat Ratio 14.8 RATIO (10-20); Chloride 105 mmol/L (98-107); Creatinine, Serum 1.55 mg/dL (0.70-1.30); EST Glomerular Filtration Rate 48 mL/min (>60); Est Glom Filt Rate - Afr Amer 58 mL/min (>60); Globulin 3.8 g/dL (2.2-4.2); Glucose 102 mg/dL (74-106); Potassium 4.3 mmol/L (3.5-5.1); Protein, Total 7.1 g/dL (6.4-8.2); Sodium Level 138 mmol/L (136-145); Thyroid Stim Hormone (TSH) 1.28 uIU/mL (0.358-3.74)
== END ==
PROVIDERS: Family Provider Family Medicine Geriatric Medicine; PCP Family Medicine Geriatric Medicine; Visit Provider Family Medicine Geriatric Medicine
DX: E55.9 Vitamin D deficiency, unspecified (principal); I10 Essential (primary) hypertension
CPT/HCPCS: 36415; 80053; 82306; 84443; 85025

== ENCOUNTER 2018-09-26 14:53 | Emergency (ER) | payer MEDICARE, SELFPAY ==
[2018-07-15 04:20] VITALS: BMI 22.6
[2018-09-26 14:53] VITALS: BMI 27.1
--- NOTE | 2018-09-26 15:06 | ED.VISSUMM ---
- ER Visit Summary Date of Service: 09/26/18 Chief Complaint: Witnessed cardiopulmonary arrest History of Present Illness: The patient is a 61 M who was brought in by squad. CPR was initiated. He did not have a shockable rhythm. Pulse ox initially was 89%. Capnometer was 29. He received 3 rounds of epinephrine prior to arrival. EMS was dispatched at 1419. Patient arrived at 1453. History is unknown. Past medical history, past surgical history allergies and meds are unknown. Paramedics state he has a cardiac history. He also has a colostomy. No other history is available or obtainable. Physical Examination: Blood pressure at 0 respirations absent patient being bagged by bowel valve mass. Rhythm narrow complex bradycardic. There were no palpable pulses. Patient was treated for pulseless electrical activity. He was orotracheally intubated with a 7.5 endotracheal tube by me without difficulty. He did aspirate. Breath sounds were noted bilaterally. There is appropriate color change on capnometer. Patient's pupils were 4-5 mm upon arrival and nonreactive. GCS was 3. Test Results: Transthoracic ultrasound was performed at 1456 and confirmed no cardiac activity. He received additional round of epinephrine and bicarb. He was pronounced at 1501. There was electrical activity on the monitor. There was no cardiac activity noted with repeat transthoracic fast scan. Emergency Department Course and Treatment: Treatment for PEA. Patient was pronounced at 1501 Treatment Plan: Eye Specialist's case Disposition: Per corner Impression: Cardiopulmonary arrest of unknown etiology This note was generated with [employer] dictation software. It may contain incorrect words, spelling, and punctuation that were not noted in review of the chart prior to signing ED Disposition - Plan for ED Patient: Chief Complaint: CPR
--- NOTE | 2018-09-26 15:21 | CHAPLAIN ---
Type of Pastoral Visit ___ Initial Visit ___ Follow-up Visit ___ On-call Visit ___ General Patient Visit ___ Spiritual Assessment ___ Family Conference ___ Bereavement ___ Rapid Response _x__ Code Blue ___ Other (describe below) Pastoral Care Referral From ___ Patient ___ Family ___ Nurse ___ Physician ___ Fuel House Attendant ___ Supervisor Baking _x__ Other (describe below) Sacrament/Intervention ___ Active listening ___ Anointing ___ Jainism ___ Bereavement ___ Communion ___ Sosa exploration ___ ___ Life review _x__ Prayer ___ Reconciliation ___ Sacrament of Sick _x__ Supportive presence ___ Wedding ___ Other (describe below) Pastoral Comments time of call and there were no family members present; waited to see if family members would be arriving; asked staff to call/page me if family arrived and spiritual care and comfort was needed
--- NOTE | 2018-09-26 17:05 | ED.RN ---
Approx 600ml NS infused during code.
== END 2018-09-26 19:32 ==
PROVIDERS: Emergency Provider Emergency Medicine; PCP Family Medicine Geriatric Medicine; Referring Provider Family Medicine Geriatric Medicine
DX: I46.9 Cardiac arrest, cause unspecified (principal); R40.2430 Glasgow coma scale score 3-8, unspecified time; R00.1 Bradycardia, unspecified; I25.10 Atherosclerotic heart disease of native coronary artery without angina pectoris
CPT/HCPCS: 31500; 92950; 94770; 99285; J7030; A4216